=== PATIENT | female | born 1965 | race African-American/Black ===

== ENCOUNTER → 2017-05-27 | Outpatient (REF) | payer OTHER, MEDICAID ==
[~2017-05-27] MED LIST: CLA OR; CLAR10CA3 PO; CLAR1TAB2 PO; CYMB60CA3 PO; FIBEPOW PO; HAIR1TAB5 PO; OXYC1TAB23 PO; PRIL1CAP PO; PRIL20CA9 PO; eczema cream TOP; meclizine OR; xanax OR
== END ==
LOC: M SFHCWAGY 11:24
PROVIDERS: ATTEND Nurse Practitioner Women's Health
DX: Z11.3 Encounter for screening for infections with a predominantly sexual mode of transmission (principal)

== ENCOUNTER → 2018-01-21 | Outpatient (REF) | payer MEDICAID, OTHER | LOC: M LAB REF 18:56 | DX: N76.0 Acute vaginitis (principal); A60.04 Herpesviral vulvovaginitis ==

== ENCOUNTER 2018-02-01 07:50 | Emergency (ER) | payer OTHER, MEDICAID ==
[2018-02-01] MEDS: ASPIRIN 81 MG CHEW TABLET PO (08:20)
[2018-02-01 08:33] LABS: BASO # 0.1 10^3/uL (0.0-0.2); BASO % 0.8 % (0.0-1.0); EOS # 0.3 10^3/uL (0.0-0.50); EOS % 4.8 % (0.0-3.0); HEMATOCRIT 39.7 % (36.0-47.0); LYMPH # 2.3 10^3/uL (1.5-4.5); LYMPH % 37.3 % (24.0-44.0); MEAN CORPUSCULAR HEMOGLOBIN 29.1 pg (27.0-33.0); MEAN CORPUSCULAR HGB CONC 32.7 g/dl (32.0-36.5); MEAN CORPUSCULAR VOLUME 88.8 fl (80.0-96.0); MONO # 0.5 10^3/uL (0.0-0.8); MONO % 7.4 % (0.0-5.0); NEUTROPHILS # 3.1 10^3/uL (1.8-7.7); NEUTROPHILS % 49.7 % (36.0-66.0); PLATELET COUNT, AUTOMATED 275 10^3/uL (150-450); RED BLOOD COUNT 4.47 10^6/uL (4.00-5.40); RED CELL DISTRIBUTION WIDTH 13.7 % (11.5-14.5); WHITE BLOOD COUNT 6.2 10^3/uL (4.0-10.0)
[2018-02-01 08:57] LABS: ALBUMIN 3.4 GM/DL (3.2-5.2); ALBUMIN/GLOBULIN RATIO 0.85 (1.00-1.93); ALKALINE PHOSPHATASE 105 U/L (45-117); ALT/SGPT 20 U/L (12-78); ANION GAP 7 MEQ/L (8-16); AST/SGOT 21 U/L (7-37); BILIRUBIN,DIRECT < 0.1 MG/DL (0.0-0.2); BILIRUBIN,TOTAL 0.3 MG/DL (0.2-1.0); BLOOD UREA NITROGEN 9 MG/DL (7-18); CALCIUM LEVEL 8.4 MG/DL (8.5-10.1); CARBON DIOXIDE LEVEL 26 MEQ/L (21-32); CHLORIDE LEVEL 108 MEQ/L (98-107); CK-MB VALUE MASS < 1.0 NG/ML (<3.6); CPK CREATINE PHOSPHOKINASE 99 U/L (26-192); CREATININE FOR GFR 0.79 MG/DL (0.55-1.30); GLOMERULAR FILTRATION RATE > 60.0 (>51); GLUCOSE, FASTING 98 MG/DL (70-100); LIPASE 104 U/L (73-393); MB/CK RELATIVE INDEX 1.01 (< OR =4); NT-PRO BNP 20 PG/ML (<125); POTASSIUM SERUM 3.9 MEQ/L (3.5-5.1); SODIUM LEVEL 141 MEQ/L (136-145); TOTAL PROTEIN 7.4 GM/DL (6.4-8.2); TROPONIN I < 0.02 NG/ML (< 0.10)
[2018-02-01] MEDS: KETOROLAC 30 MG/ML VIAL (J1885) IV (09:15)
[2018-02-01] MEDS: GI COCKTAIL 50ML BTL(HYOSCYAMINE/MAALOX/LIDOCAINE VISCOUS)(1:3:1) PO (09:15)
[2018-02-01 11:14] LABS: CPK CREATINE PHOSPHOKINASE 91 U/L (26-192); TROPONIN I < 0.02 NG/ML (< 0.10)
[2018-02-01 11:15] LABS: CK-MB VALUE MASS < 1.0 NG/ML (<3.6); MB/CK RELATIVE INDEX 1.09 (< OR =4)
== END 2018-02-01 12:30 | disposition home or self-care (01) ==
LOC: M ED 07:50
DX: R07.9 Chest pain, unspecified (principal); I31.9 Disease of pericardium, unspecified; F41.9 Anxiety disorder, unspecified; F32.9 Major depressive disorder, single episode, unspecified; Z79.899 Other long term (current) drug therapy
CPT/HCPCS: J1885

== ENCOUNTER 2018-08-05 19:25 | Emergency (ER) | payer OTHER, MEDICAID ==
[2018-08-05] MEDS: IBUPROFEN 600 MG TAB PO (21:03)
[2018-08-05] MEDS: ALBUTEROL SULFATE 2.5 MG/0.5 ML INH NEB SOLN NEB (21:04)
[2018-08-05] MEDS: BENZONATATE 100 MG CAP PO (21:04)
[2018-08-05] MEDS: PSEUDOEPHEDRINE 30 MG TAB PO (21:08)
[2018-08-05 21:37] LABS: INFLUENZA A AMPLIFICATION NEGATIVE (NEGATIVE); INFLUENZA B AMPLIFICATION NEGATIVE (NEGATIVE)
[2018-08-05 22:12] LABS: BASO # 0.1 10^3/uL (0.0-0.2); BASO % 0.5 % (0.0-1.0); EOS # 0.1 10^3/uL (0.0-0.50); EOS % 1.1 % (0.0-3.0); HEMATOCRIT 40.7 % (36.0-47.0); HEMOGLOBIN 13.5 g/dl (12.0-15.5); IMMATURE GRANULOCYTE % 0.4 % (0-3.0); LYMPH # 2.1 10^3/uL (1.5-4.5); LYMPH % 19.4 % (24.0-44.0); MEAN CORPUSCULAR HEMOGLOBIN 30.5 pg (27.0-33.0); MEAN CORPUSCULAR HGB CONC 33.2 g/dl (32.0-36.5); MEAN CORPUSCULAR VOLUME 92.1 fl (80.0-96.0); MONO % 9.5 % (0.0-5.0); NEUTROPHILS # 7.6 10^3/uL (1.8-7.7); NEUTROPHILS % 69.1 % (36.0-66.0); PLATELET COUNT, AUTOMATED 229 10^3/uL (150-450); RED BLOOD COUNT 4.42 10^6/uL (4.00-5.40)
[2018-08-05 22:38] LABS: ALBUMIN 3.9 GM/DL (3.2-5.2); ALBUMIN/GLOBULIN RATIO 1.15 (1.00-1.93); ALKALINE PHOSPHATASE 87 U/L (45-117); ALT/SGPT 22 U/L (12-78); ANION GAP 6 MEQ/L (8-16); AST/SGOT 22 U/L (7-37); BILIRUBIN,TOTAL 0.4 MG/DL (0.2-1.0); BLOOD UREA NITROGEN 14 MG/DL (7-18); CALCIUM LEVEL 8.7 MG/DL (8.5-10.1); CARBON DIOXIDE LEVEL 28 MEQ/L (21-32); CHLORIDE LEVEL 104 MEQ/L (98-107); CK-MB VALUE MASS < 1.0 NG/ML (<3.6); CPK CREATINE PHOSPHOKINASE 121 U/L (26-192); CREATININE FOR GFR 0.87 MG/DL (0.55-1.30); GLOMERULAR FILTRATION RATE > 60.0 (>51); GLUCOSE, FASTING 111 MG/DL (70-100); LIPASE 106 U/L (73-393); MB/CK RELATIVE INDEX 0.83 (< OR =4); POTASSIUM SERUM 4.1 MEQ/L (3.5-5.1); SODIUM LEVEL 138 MEQ/L (136-145); TOTAL PROTEIN 7.3 GM/DL (6.4-8.2); TROPONIN I < 0.02 NG/ML (< 0.10)
== END 2018-08-05 23:02 | disposition home or self-care (01) ==
LOC: M ED 19:25
DX: J06.9 Acute upper respiratory infection, unspecified (principal); Z87.891 Personal history of nicotine dependence; Z82.49 Family history of ischemic heart disease and other diseases of the circulatory system; Z79.899 Other long term (current) drug therapy
CPT/HCPCS: 71046

== ENCOUNTER 2018-08-07 21:11 | Emergency (ER) | payer OTHER, MEDICAID ==
[2018-08-07] MEDS: NS 1,000 ML IV ×2 (21:53→22:00)
[2018-08-07 22:02] LABS: BASO % 0.3 % (0.0-1.0); HEMATOCRIT 40.4 % (36.0-47.0); HEMOGLOBIN 13.9 g/dl (12.0-15.5); IMMATURE GRANULOCYTE % 0.1 % (0-3.0); LYMPH # 0.9 10^3/uL (1.5-4.5); LYMPH % 8.5 % (24.0-44.0); MEAN CORPUSCULAR HEMOGLOBIN 30.5 pg (27.0-33.0); MEAN CORPUSCULAR HGB CONC 34.4 g/dl (32.0-36.5); MEAN CORPUSCULAR VOLUME 88.6 fl (80.0-96.0); MONO # 0.5 10^3/uL (0.0-0.8); MONO % 5.2 % (0.0-5.0); NEUTROPHILS # 8.9 10^3/uL (1.8-7.7); NEUTROPHILS % 85.9 % (36.0-66.0); PLATELET COUNT, AUTOMATED 223 10^3/uL (150-450); RED BLOOD COUNT 4.56 10^6/uL (4.00-5.40); RED CELL DISTRIBUTION WIDTH 13.7 % (11.5-14.5); WHITE BLOOD COUNT 10.3 10^3/uL (4.0-10.0)
[2018-08-07 22:11] LABS: ALBUMIN 3.4 GM/DL (3.2-5.2); ALBUMIN/GLOBULIN RATIO 0.81 (1.00-1.93); ALKALINE PHOSPHATASE 89 U/L (45-117); ALT/SGPT 21 U/L (12-78); ANION GAP 8 MEQ/L (8-16); AST/SGOT 23 U/L (7-37); BILIRUBIN,DIRECT 0.1 MG/DL (0.0-0.2); BILIRUBIN,TOTAL 0.4 MG/DL (0.2-1.0); BLOOD UREA NITROGEN 9 MG/DL (7-18); CALCIUM LEVEL 8.4 MG/DL (8.5-10.1); CARBON DIOXIDE LEVEL 25 MEQ/L (21-32); CHLORIDE LEVEL 103 MEQ/L (98-107); CREATININE FOR GFR 0.98 MG/DL (0.55-1.30); GLOMERULAR FILTRATION RATE > 60.0 (>51); GLUCOSE, FASTING 140 MG/DL (70-100); POTASSIUM SERUM 3.4 MEQ/L (3.5-5.1); SODIUM LEVEL 136 MEQ/L (136-145); TOTAL PROTEIN 7.6 GM/DL (6.4-8.2)
[2018-08-07 22:12] LABS: LACTIC ACID SEPSIS PROTOCOL 0.9 MMOL/L (0.4-2.0)
[2018-08-07] MEDS: IBUPROFEN 600 MG TAB PO (22:30)
[2018-08-07] MEDS: ACETAMINOPHEN 650MG ER TAB (TYLENOL ARTHRITIS) PO (23:00)
[2018-08-07 23:10] LABS: APPEARANCE, URINE HAZY (CLEAR); BACTERIA, URINE AUTO 3+ (NEGATIVE); BILIRUBIN, URINE AUTO NEGATIVE (NEGATIVE); BLOOD, URINE BLOOD NEGATIVE (NEGATIVE); COLOR, URINE YELLOW (YELLOW); GLUCOSE, URINE (UA) AUTO NEGATIVE (NEGATIVE); KETONE, URINE AUTO TRACE mg/dL (NEGATIVE); LEUKOCYTE ESTERASE, URINE AUTO 1+ (NEGATIVE); MUCUS, URINE SMALL (NEGATIVE); NITRITE, URINE AUTO NEGATIVE (NEGATIVE); PROTEIN, URINE AUTO NEGATIVE (NEGATIVE); RBC, URINE AUTO 4 /HPF (0-3); SQUAMOUS EPITHELIAL CELL UR AU 5 /HPF (0-6); UROBILINOGEN, URINE AUTO 0.2 mg/dL (0.0-2.0); WBC, URINE AUTO 5 /HPF (0-3)
[2018-08-07] MEDS: ACETAMINOPHEN TAB 650MG DOSE (2X325MG) PO (23:15)
[2018-08-08] MEDS: AZITHROMYCIN 250 MG TAB PO (00:50)
[2018-08-08] MEDS: cefTRIAXone SOD 1 GM in D5W MINI-BAG PLUS 50 ML IV (00:50)
[2018-08-08] MEDS: OXYCODONE/APAP 5MG/325MG(BULK FOR ED) 1 TABLET PO (00:50)
[2018-08-08 01:02] LABS: INFLUENZA A AMPLIFICATION NEGATIVE (NEGATIVE); INFLUENZA B AMPLIFICATION NEGATIVE (NEGATIVE)
== END 2018-08-08 01:18 | disposition home or self-care (01) ==
LOC: M ED 08-08 01:18
DX: J18.9 Pneumonia, unspecified organism (principal); R00.0 Tachycardia, unspecified; R94.31 Abnormal electrocardiogram [ECG] [EKG]; K21.9 Gastro-esophageal reflux disease without esophagitis; F41.9 Anxiety disorder, unspecified; F32.9 Major depressive disorder, single episode, unspecified; L30.9 Dermatitis, unspecified; Z87.891 Personal history of nicotine dependence; Z79.899 Other long term (current) drug therapy
CPT/HCPCS: J0696

== ENCOUNTER 2018-08-23 16:17 | Inpatient (IN) | payer MEDICAID, OTHER ==
[~2018-08-23] VITALS: Ht 157.5 cm; Wt 80.5 kg
[~2018-08-23 16:17] MED LIST changes: +ACET-683 PO; +ACET1TAB55 PO; +ALEV220T26 PO; +ALPR0.25 PO; +AMOX500C PO; +AZIT500T2 PO; +BRIN10TA4; +CALC1TAB74 PO; +CALC1TAB9 PO; +CEFD300CAP PO; +CLON0.5T8 PO; +CLON1TAB8 PO; +CYMB1CAP5 PO; +DESO0.254 TOP; +FIBE625T PO; +FIBE625T22 PO; +HAIR1CHW2 PO; +IBUP-1114 PO; +KLON1TAB PO; +MAGN250T11 PO; +MAGN400T5 PO; +METR1TAB66; +MOTR200T PO; +NYST10CR TOP; +OMEP20CA3 PO; +OXYC-517 PO; +PERP4TA PO; +PROAAER10 INH; +PSEU1TAB3 PO; +REME15TA PO; +TERC0.4C; +TESS100C PO; +TRIA0.5O TOP; +VITA500T3 PO; +VITA500T53 PO; +XANA0.25 PO
[2018-08-23 16:39] LABS: HEMATOCRIT 42.9 % (36.0-47.0); HEMOGLOBIN 14.3 g/dl (12.0-15.5); MEAN CORPUSCULAR HEMOGLOBIN 30.2 pg (27.0-33.0); MEAN CORPUSCULAR HGB CONC 33.3 g/dl (32.0-36.5); MEAN CORPUSCULAR VOLUME 90.7 fl (80.0-96.0); PLATELET COUNT, AUTOMATED 300 10^3/uL (150-450); RED BLOOD COUNT 4.73 10^6/uL (4.00-5.40); WHITE BLOOD COUNT 5.8 10^3/uL (4.0-10.0)
[2018-08-23 17:11] LABS: AMPHETAMINES LEVEL URINE NEGATIVE (NEGATIVE); BARBITURATES URINE NEGATIVE (NEGATIVE); BENZODIAZEPINES URINE POSITIVE (NEGATIVE); CANNABINOIDS URINE POSITIVE (NEGATIVE); COCAINE METABOLITE URINE NEGATIVE (NEGATIVE); METHADONE URINE NEGATIVE (NEGATIVE); OPIATES URINE NEGATIVE (NEGATIVE); PHENCYCLIDINE URINE NEGATIVE (NEGATIVE)
[2018-08-23 17:21] LABS: ACETAMINOPHEN LEVEL 3.6 UG/ML (10.0-30.0); ALBUMIN 3.9 GM/DL (3.2-5.2); ALT/SGPT 22 U/L (12-78); BILIRUBIN,DIRECT 0.1 MG/DL (0.0-0.2); BILIRUBIN,TOTAL 0.3 MG/DL (0.2-1.0); BLOOD UREA NITROGEN 14 MG/DL (7-18); CALCIUM LEVEL 8.7 MG/DL (8.5-10.1); CARBON DIOXIDE LEVEL 25 MEQ/L (21-32); CHLORIDE LEVEL 108 MEQ/L (98-107); CREATININE FOR GFR 0.83 MG/DL (0.55-1.30); ETHYL ALCOHOL (ETHANOL) < 0.003 % (0.000-0.010); GLOMERULAR FILTRATION RATE > 60.0 (>51); GLUCOSE, FASTING 98 MG/DL (70-100); POTASSIUM SERUM 4.4 MEQ/L (3.5-5.1); SALICYLATE LEVEL < 1.7 MG/DL (5.0-30.0); SODIUM LEVEL 142 MEQ/L (136-145); TOTAL PROTEIN 7.7 GM/DL (6.4-8.2)
[2018-08-23] MEDS ORDERED: PROAAER10 INH (18:04)
[2018-08-23] MEDS ORDERED: CYMB60CA3 PO (18:05)
[2018-08-23] MEDS ORDERED: TESS100C PO (18:05)
[2018-08-23] MEDS ORDERED: BRIN10TA4 PO (18:08)
[2018-08-23] MEDS ORDERED: ACETAMINOPHEN TAB 650MG DOSE (2X325MG) PO PRN (19:00)
[2018-08-23] MEDS ORDERED: MAALOX 30 ML SUSP *UDC PO PRN (19:00)
[2018-08-23] MEDS ORDERED: traZODone 50 MG TAB PO PRN (19:00)
[2018-08-23] MEDS ORDERED: MOM 30ML SUSPENSION UDC PO PRN (19:00)
[2018-08-23 22:19] VITALS: BP 140/80
[2018-08-23] MEDS ORDERED: clonazePAM 1 MG TAB PO PRN (23:15)
[2018-08-23] MEDS ORDERED: ALBUTEROL 90 MCG/ACT 8GM HFA INHALER INH PRN (23:15)
[2018-08-23] MEDS ORDERED: BENZONATATE 100 MG CAP PO PRN (23:15)
[2018-08-24 06:43] VITALS: BP 127/66
[2018-08-24] MEDS: CYANOCOBALAMIN 500 MCG TAB PO SCH (08:52)
[2018-08-24] MEDS: MAGNESIUM OXIDE 400 MG TAB (MAG-OX) PO SCH (08:52)
[2018-08-24] MEDS: LORATADINE 10 MG TAB PO SCH (08:52)
[2018-08-24] MEDS: FIBER-CON 625 MG TAB PO SCH ×2 (08:52→20:56)
[2018-08-24] MEDS: OMEPRAZOLE 20 MG CAP PO SCH (08:52)
[2018-08-24] MEDS ORDERED: DULoxetine 30 MG CAP (CYMBALTA) PO SCH (09:00)
[2018-08-24] MEDS: VENLAFAXINE **XR** 75MG CAPSULE PO SCH (11:35)
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
[2018-08-24 18:00] VITALS: BP 137/91
[2018-08-24] MEDS: traZODone 50 MG TAB PO PRN (20:56)
[2018-08-25 07:00] VITALS: BP 107/53
[2018-08-25] MEDS: FIBER-CON 625 MG TAB PO SCH ×2 (09:28→21:51)
[2018-08-25] MEDS: CYANOCOBALAMIN 500 MCG TAB PO SCH (09:29)
[2018-08-25] MEDS: OMEPRAZOLE 20 MG CAP PO SCH (09:30)
[2018-08-25] MEDS: VENLAFAXINE **XR** 75MG CAPSULE PO SCH (09:30)
[2018-08-25] MEDS: MAGNESIUM OXIDE 400 MG TAB (MAG-OX) PO SCH (09:30)
[2018-08-25] MEDS: LORATADINE 10 MG TAB PO SCH (09:30)
--- NOTE | 2018-08-25 10:42 | REP ---
Chest x-ray: Two views. History: Follow-up pneumonia. Comparison chest x-ray August 07, 2018. Findings: The infiltrate noted previously in the right upper lobe has resolved. No infiltrate is seen. Lung alxeandra are clear. Pleural angles are sharp. Heart is not enlarged. The aorta is somewhat tortuous and there are mild degenerative changes in the thoracic spine as before. Impression: No active disease. Previously noted right upper lobe infiltrate has resolved. Electronically Signed by Ricki Harvey MD 08/25/2018 10:34 A
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
--- NOTE | 2018-08-25 15:35 | HPE ---
DATE OF ADMISSION: 08/24/2017 HISTORY OF PRESENT ILLNESS: Please refer to the psychiatric history and evaluation for further details on this admission. This examination and history is intended for medical issues which may need treatment, followup or consult on this 53-year-old female. PRIMARY CARE PROVIDER: FRANSICO Berman SOCIAL HISTORY: She is single. She has two children. She works in daycare. She does not smoke cigarettes. She drinks once a month if that. Illicit drug use: Cocaine in her teens, acid approximately 30 years ago. She occasionally smokes marijuana. FAMILY HISTORY: Mother from chronic obstructive pulmonary disease (COPD). Father unknown. LABORATORY STUDIES: CBC was normal. Sodium 142, potassium 4.4, chloride 105, CO2 25, anion gap 9, BUN 14, creatinine 0.83. Urine for toxicology positive for benzodiazepines, positive for cannabinoids. PAST MEDICAL HISTORY: 1. Anxiety. 2. Depression. 3. Eczema. 4. Gastroesophageal reflux disease (GERD). 5. Allergic rhinitis. PAST SURGICAL HISTORY: 1. Right carpal tunnel release. 2. Hysterectomy. 3. Left trigger thumb release. 4. De Quervain's tendonitis. REVIEW OF SYSTEMS: She had a cough and was treated since 08/07/2018 for pneumonia. She has finished her antibiotics. She takes loratadine for her allergic rhinitis. She says her cough is almost gone. We will get a followup chest x-ray. Otherwise, review of systems was negative. HOME MEDICATIONS: - alprazolam 0.25 mg daily as needed for anxiety or agitation - FiberCon 1250 mg by mouth twice a day - magnesium 250 mg by mouth daily - perphenazine 4 mg by mouth twice a day - Trintellix 10 mg by mouth daily - albuterol two puffs by mouth every 4-6 hours as needed for shortness of breath or wheeze - Tessalon Perles 100 by mouth three times a day as needed for cough - Klonopin 1 mg by mouth twice a day as needed for anxiety - vitamin B12 500 mcg by mouth daily - Cymbalta 60 mg by mouth daily - loratadine 10 mg by mouth daily - omeprazole 20 mg by mouth daily PHYSICAL EXAMINATION: A 53-year-old cooperative female in no acute distress. Height 62 inches. Weight 80.5 kg. Body mass index (BMI) 32.5. Blood pressure 127/66, pulse 76, respirations 16, temperature 97.7, oxygen saturation 97% on room air. The patient is alert and oriented times three. Pupils are equal and react to light. Extraocular muscles intact. Cornea and sclerae clear. Conjunctiva is normal. No facial asymmetry. Pharynx, tongue and gums pink and moist. Tongue is midline. Neck is supple without lymphadenopathy. No thyromegaly. No goiter. Carotids are 2+ without bruit. Chest is clear to auscultation without wheeze or retraction. Heart is regular. Abdomen is benign. Bowel sounds positive. Genitourinary ()/rectal not done. Extremities show equal strength, full range of motion. No cyanosis, clubbing or edema. Peripheral pulses are equal and palpable bilaterally. Skin is warm and dry. IMPRESSION AND PLAN: 1. Psychiatric plan per psychiatry. 2. Followup chest x-ray, status post pneumonia treatment. 3. Baseline EKG was done 11/24/2017 which showed normal sinus rhythm. 4. Continue loratadine for history of allergic rhinitis, omeprazole for gastroesophageal reflux disease (GERD). No other acute medical issues.
[2018-08-25 18:00] VITALS: BP 141/83
[2018-08-25] MEDS: traZODone 50 MG TAB PO PRN (21:51)
[2018-08-26 06:22] VITALS: BP 93/59
[2018-08-26] MEDS: CYANOCOBALAMIN 500 MCG TAB PO SCH (08:43)
[2018-08-26] MEDS: FIBER-CON 625 MG TAB PO SCH ×2 (08:43→20:44)
[2018-08-26] MEDS: OMEPRAZOLE 20 MG CAP PO SCH (08:44)
[2018-08-26] MEDS: VENLAFAXINE **XR** 75MG CAPSULE PO SCH (08:44)
[2018-08-26] MEDS: LORATADINE 10 MG TAB PO SCH (08:44)
[2018-08-26] MEDS: MAGNESIUM OXIDE 400 MG TAB (MAG-OX) PO SCH (08:44)
[2018-08-26] MEDS ORDERED: INFLUENZA QUADRIVALENT PF VACCINE 0.5ML SYRINGE (90686) IM ONE (09:00)
[2018-08-26 18:00] VITALS: BP 127/86
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
[2018-08-26] MEDS: traZODone 50 MG TAB PO PRN (20:45)
[2018-08-27 06:18] VITALS: BP 108/63
[2018-08-27] MEDS: MAGNESIUM OXIDE 400 MG TAB (MAG-OX) PO SCH (08:28)
[2018-08-27] MEDS: VENLAFAXINE **XR** 75MG CAPSULE PO SCH (08:28)
[2018-08-27] MEDS: OMEPRAZOLE 20 MG CAP PO SCH (08:28)
[2018-08-27] MEDS: CYANOCOBALAMIN 500 MCG TAB PO SCH (08:28)
[2018-08-27] MEDS: LORATADINE 10 MG TAB PO SCH (08:28)
[2018-08-27] MEDS: FIBER-CON 625 MG TAB PO SCH (08:28)
[2018-08-27] MEDS ORDERED: TRAZO50TA PO (10:51)
[2018-08-27] MEDS ORDERED: KLON1TAB PO (10:51)
[2018-08-27] MEDS ORDERED: FIBE625T PO (10:51)
[2018-08-27] MEDS ORDERED: CLAR1TAB2 PO (10:51)
[2018-08-27] MEDS ORDERED: TESS100C PO (10:51)
[2018-08-27] MEDS ORDERED: PROAAER10 INH (10:51)
[2018-08-27] MEDS ORDERED: OMEP20CA3 PO (10:51)
[2018-08-27] MEDS ORDERED: VENL75CA47 PO (10:51)
[2018-08-27] MEDS ORDERED: MAGN250T11 PO (10:51)
[2018-08-27] MEDS ORDERED: VITA500T3 PO (10:51)
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
== END 2018-08-27 11:30 | disposition home or self-care (01) | DRG 751 ==
LOC: M ED 16:17 → M ED INP 18:56 → M PSY 21:23
PROVIDERS: ADMIT Psychiatry & Neurology Psychiatry; ATTEND Psychiatry & Neurology Psychiatry
DX: F33.3 Major depressive disorder, recurrent, severe with psychotic symptoms (principal); R45.851 Suicidal ideations; F41.9 Anxiety disorder, unspecified; F43.10 Post-traumatic stress disorder, unspecified; Z79.899 Other long term (current) drug therapy; K21.9 Gastro-esophageal reflux disease without esophagitis; J30.9 Allergic rhinitis, unspecified; L30.9 Dermatitis, unspecified

== ENCOUNTER → 2018-12-24 | Outpatient (REF) | payer OTHER ==
[~2018-12-24] MED LIST changes: +BRIN10TA4 PO; +METR-265; -METR1TAB66; -TERC0.4C; +TERC0.4C2; +TRAZO50TA PO; +VENL75CA47 PO; +VITA500T17 PO; -VITA500T53 PO
[2018-12-24 15:35] LABS: HEMATOCRIT 44.4 % (36.0-47.0); HEMOGLOBIN 14.3 g/dl (12.0-15.5); MEAN CORPUSCULAR HEMOGLOBIN 30.1 pg (27.0-33.0); MEAN CORPUSCULAR HGB CONC 32.2 g/dl (32.0-36.5); MEAN CORPUSCULAR VOLUME 93.5 fl (80.0-96.0); PLATELET COUNT, AUTOMATED 310 10^3/uL (150-450); RED BLOOD COUNT 4.75 10^6/uL (4.00-5.40)
[2018-12-24 15:49] LABS: ALBUMIN 3.8 GM/DL (3.2-5.2); ALT/SGPT 30 U/L (12-78); BILIRUBIN,TOTAL 0.3 MG/DL (0.2-1.0); BLOOD UREA NITROGEN 8 MG/DL (7-18); CALCIUM LEVEL 8.4 MG/DL (8.5-10.1); CARBON DIOXIDE LEVEL 29 MEQ/L (21-32); CHLORIDE LEVEL 109 MEQ/L (98-107); CHOLESTEROL LEVEL 227 MG/DL (<200); CHOLESTEROL RISK RATIO 4.365 (<5); CREATININE FOR GFR 0.76 MG/DL (0.55-1.30); FREE T4 0.79 NG/DL (0.76-1.46); GLOMERULAR FILTRATION RATE > 60.0 (>51); GLUCOSE, FASTING 75 MG/DL (70-100); HDL CHOLESTEROL 52 MG/DL (>40); LDL CHOLESTEROL 129 MG/DL (<100); NON-HDL-C 175 MG/DL; POTASSIUM SERUM 4.7 MEQ/L (3.5-5.1); SODIUM LEVEL 141 MEQ/L (136-145); TRIGLYCERIDES LEVEL 228 MG/DL (<150)
== END ==
LOC: M SFHCADAM 11:29
PROVIDERS: ATTEND Physician Assistant
DX: F41.9 Anxiety disorder, unspecified (principal); Z13.220 Encounter for screening for lipoid disorders; L72.9 Follicular cyst of the skin and subcutaneous tissue, unspecified; K21.9 Gastro-esophageal reflux disease without esophagitis; R14.0 Abdominal distension (gaseous)

== ENCOUNTER 2019-08-08 09:23 | Emergency (ER) | payer OTHER, MEDICAID ==
[~2019-08-08] VITALS: Ht 160 cm; Wt 85.9 kg
[~2019-08-08 09:23] MED LIST changes: -AZIT500T2 PO; +AZIT500T5 PO; +CLON0.5T2 PO; -CLON0.5T8 PO; +CYAN500T8 PO; +OMEP-172 PO; -OMEP20CA3 PO; +TRAZ1TAB10 PO; -TRAZO50TA PO; -VITA500T3 PO
[2019-08-08 10:45] LABS: BASO % 0.6 % (0.0-1.0); EOS # 0.1 10^3/uL (0.0-0.5); EOS % 2.1 % (0.0-3.0); HEMATOCRIT 43.4 % (36.0-47.0); HEMOGLOBIN 13.8 g/dl (12.0-15.5); LYMPH # 2.2 10^3/uL (1.5-5.0); LYMPH % 32.6 % (24.0-44.0); MEAN CORPUSCULAR HEMOGLOBIN 28.9 pg (27.0-33.0); MEAN CORPUSCULAR HGB CONC 31.8 g/dl (32.0-36.5); MONO # 0.4 10^3/uL (0.0-0.8); MONO % 5.8 % (0.0-5.0); NEUTROPHILS # 3.9 10^3/uL (1.5-8.5); NEUTROPHILS % 58.6 % (36.0-66.0); PLATELET COUNT, AUTOMATED 296 10^3/uL (150-450); RED BLOOD COUNT 4.77 10^6/uL (4.00-5.40); WHITE BLOOD COUNT 6.7 10^3/uL (4.0-10.0)
[2019-08-08 10:57] LABS: INR 0.97; PROTHROMBIN TIME 12.6 SECONDS (11.8-14.0)
--- NOTE | 2019-08-08 10:57 | REP ---
Chest x-ray: Two views. History: Hypertension . Comparison study: August 25, 2018 . Findings: The lungs are well inflated and free of infiltrate. The pleural angles are sharp. The heart size is normal. Pulmonary vasculature is not increased. No significant bony abnormality is seen. Monitoring electrodes are seen. The thoracic aorta slightly tortuous as before. Impression: No active disease. Electronically Signed by Ricki Harvey MD 08/08/2019 10:49 A
[2019-08-08 10:58] LABS: PARTIAL THROMBOPLASTIN TIME 29.5 SECONDS (25.0-38.4)
[2019-08-08 11:23] LABS: BLOOD UREA NITROGEN 9 MG/DL (7-18); CALCIUM LEVEL 8.7 MG/DL (8.5-10.1); CARBON DIOXIDE LEVEL 27 MEQ/L (21-32); CHLORIDE LEVEL 108 MEQ/L (98-107); CK-MB VALUE MASS 1.5 NG/ML (<3.6); CPK CREATINE PHOSPHOKINASE 134 U/L (26-192); CREATININE FOR GFR 0.84 MG/DL (0.55-1.30); FREE T4 0.87 NG/DL (0.76-1.46); GLOMERULAR FILTRATION RATE > 60.0 (>51); GLUCOSE, FASTING 84 MG/DL (70-100); MB/CK RELATIVE INDEX 1.12 (< OR =4); SODIUM LEVEL 141 MEQ/L (136-145); TROPONIN I < 0.02 NG/ML (< 0.10)
[2019-08-08 12:49] VITALS: BP 134/76
--- NOTE | 2019-08-09 21:57 | ECGEPIP ---
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
== END 2019-08-08 12:56 | disposition home or self-care (01) ==
LOC: M ED 09:23
DX: I10 Essential (primary) hypertension (principal); R00.1 Bradycardia, unspecified; F41.9 Anxiety disorder, unspecified; F32.9 Major depressive disorder, single episode, unspecified; Z79.899 Other long term (current) drug therapy

== ENCOUNTER → 2020-01-31 | Outpatient (CLI) | payer OTHER ==
[~2020-01-31] MED LIST changes: +DEXT350P PO; -FIBEPOW PO; -OMEP-172 PO; +OMEP1CAP73 PO
--- NOTE | 2020-02-02 14:49 | REP ---
Clinical: Enlarged thyroid gland by physical examination. Technique: Real time wheat scale and color evaluation using linear high frequency and curved array transducers. Findings: The thyroid gland is relatively normal in contour, size, parenchymal echotexture and overall appearance. Right lobe measures 4.5 x 1.7 x 1.7 cm. Left lobe measures 4.8 x 1.7 x 1.3 cm. Isthmus measures 4.2 mm in width. No discrete cyst, nodule or mass lesion appreciated. Impression: Normal thyroid ultrasound.
== END ==
LOC: M PLAIMG 14:28
PROVIDERS: ATTEND Family Medicine
DX: E04.9 Nontoxic goiter, unspecified (principal)

== ENCOUNTER → 2020-02-13 | Outpatient (REF) | payer OTHER ==
[2020-02-13 13:46] LABS: BASO # 0.1 10^3/uL (0.0-0.2); BASO % 0.8 % (0.0-1.0); EOS # 0.3 10^3/uL (0.0-0.5); EOS % 3.8 % (0.0-3.0); HEMATOCRIT 44.2 % (36.0-47.0); HEMOGLOBIN 14.4 g/dl (12.0-15.5); LYMPH # 2.8 10^3/uL (1.5-5.0); LYMPH % 41.8 % (24.0-44.0); MEAN CORPUSCULAR HEMOGLOBIN 28.9 pg (27.0-33.0); MEAN CORPUSCULAR HGB CONC 32.6 g/dl (32.0-36.5); MEAN CORPUSCULAR VOLUME 88.8 fl (80.0-96.0); MONO # 0.4 10^3/uL (0.0-0.8); MONO % 6.6 % (0.0-5.0); NEUTROPHILS # 3.1 10^3/uL (1.5-8.5); NEUTROPHILS % 46.8 % (36.0-66.0); PLATELET COUNT, AUTOMATED 296 10^3/uL (150-450); RED BLOOD COUNT 4.98 10^6/uL (4.00-5.40); WHITE BLOOD COUNT 6.6 10^3/uL (4.0-10.0)
[2020-02-13 14:25] LABS: ALBUMIN 3.7 GM/DL (3.2-5.2); ALT/SGPT 15 U/L (12-78); BILIRUBIN,TOTAL 0.3 MG/DL (0.2-1.0); BLOOD UREA NITROGEN 12 MG/DL (7-18); CALCIUM LEVEL 8.8 MG/DL (8.5-10.1); CARBON DIOXIDE LEVEL 28 MEQ/L (21-32); CHLORIDE LEVEL 107 MEQ/L (98-107); CHOLESTEROL LEVEL 206 MG/DL (<200); CHOLESTEROL RISK RATIO 3.551 (<5); CREATININE FOR GFR 0.85 MG/DL (0.55-1.30); FREE T4 0.94 NG/DL (0.76-1.46); GLOMERULAR FILTRATION RATE > 60.0 (>51); GLUCOSE, FASTING 93 MG/DL (70-100); HDL CHOLESTEROL 58 MG/DL (>40); LDL CHOLESTEROL 120 MG/DL (<100); NON-HDL-C 148 MG/DL; POTASSIUM SERUM 4.6 MEQ/L (3.5-5.1); SODIUM LEVEL 138 MEQ/L (136-145); TOTAL PROTEIN 7.7 GM/DL (6.4-8.2); TRIGLYCERIDES LEVEL 138 MG/DL (<150)
== END ==
LOC: M SFHCADAM 08:49
PROVIDERS: ATTEND Family Medicine
DX: Z00.00 Encounter for general adult medical examination without abnormal findings (principal); E04.9 Nontoxic goiter, unspecified

== ENCOUNTER 2020-08-18 15:45 | Inpatient (IN) | payer MEDICAID, OTHER ==
[~2020-08-18] VITALS: Ht 165.1 cm; Wt 97.6 kg
[~2020-08-18 15:45] MED LIST changes: +CYAN500T14 PO; -CYAN500T8 PO; +MIRT-62 PO; -REME15TA PO
[2020-08-18] MEDS ORDERED: ESTR1TAB PO (16:10)
[2020-08-18] MEDS ORDERED: KLON1TAB PO (16:10)
[2020-08-18] MEDS ORDERED: BRIN1TAB3 PO (16:10)
[2020-08-18] MEDS ORDERED: PRIS50TA PO (16:10)
[2020-08-18 16:15] LABS: BASO % 0.1 % (0.0-1.0); HEMATOCRIT 38.2 % (36.0-47.0); HEMOGLOBIN 12.4 g/dl (12.0-15.5); LYMPH % 6.6 % (24.0-44.0); MEAN CORPUSCULAR HEMOGLOBIN 28.6 pg (27.0-33.0); MEAN CORPUSCULAR HGB CONC 32.5 g/dl (32.0-36.5); MONO # 0.5 10^3/uL (0.0-0.8); MONO % 3.1 % (0.0-5.0); NEUTROPHILS % 89.9 % (36.0-66.0); PLATELET COUNT, AUTOMATED 278 10^3/uL (150-450); RED BLOOD COUNT 4.34 10^6/uL (4.00-5.40); WHITE BLOOD COUNT 15.5 10^3/uL (4.0-10.0)
[2020-08-18] MEDS ORDERED: NS 1,000 ML IV ONE (16:15)
--- NOTE | 2020-08-18 16:18 | REP ---
INDICATION: Drug Overdose COMPARISON: 08/08/2019 TECHNIQUE: Portable AP view of the chest FINDINGS: The mediastinum and cardiac silhouette are stable and within normal limits for portable technique. The lung alexandra are clear without acute consolidation, effusion, or pneumothorax. Skeletal structures are intact. IMPRESSION: No acute cardiopulmonary process appreciated. <Electronically signed by Tello Santiago > 08/18/20 1230
[2020-08-18 17:03] LABS: ACETAMINOPHEN LEVEL < 2.0 UG/ML (10.0-30.0); ALBUMIN 3.5 GM/DL (3.2-5.2); ALT/SGPT 18 U/L (12-78); BILIRUBIN,DIRECT < 0.1 MG/DL (0.0-0.2); BILIRUBIN,TOTAL 0.5 MG/DL (0.2-1.0); BLOOD UREA NITROGEN 17 MG/DL (7-18); CALCIUM LEVEL 8.6 MG/DL (8.5-10.1); CARBON DIOXIDE LEVEL 25 MEQ/L (21-32); CHLORIDE LEVEL 106 MEQ/L (98-107); CPK CREATINE PHOSPHOKINASE 234 U/L (26-192); CREATININE FOR GFR 1.01 MG/DL (0.55-1.30); ETHYL ALCOHOL (ETHANOL) < 0.003 % (0.000-0.010); GLOMERULAR FILTRATION RATE > 60.0 (>51); GLUCOSE, FASTING 110 MG/DL (70-100); SALICYLATE LEVEL < 1.7 MG/DL (5.0-30.0); SODIUM LEVEL 139 MEQ/L (136-145); THYROID STIMULATING HORMONE 0.762 uIU/ML (0.358-3.740); TOTAL PROTEIN 7.4 GM/DL (6.4-8.2)
[2020-08-18 17:08] LABS: RSV AMPLIFICATION NEGATIVE (NEGATIVE)
[2020-08-18 17:18] LABS: AMPHETAMINES LEVEL URINE NEGATIVE (NEGATIVE); BARBITURATES URINE NEGATIVE (NEGATIVE); BENZODIAZEPINES URINE POSITIVE (NEGATIVE); CANNABINOIDS URINE NEGATIVE (NEGATIVE); COCAINE METABOLITE URINE NEGATIVE (NEGATIVE); METHADONE URINE NEGATIVE (NEGATIVE); OPIATES URINE NEGATIVE (NEGATIVE); PHENCYCLIDINE URINE NEGATIVE (NEGATIVE)
[2020-08-18] MEDS ORDERED: LORA-674 PO (17:19)
[2020-08-18] MEDS ORDERED: OMEP-218 PO (17:19)
[2020-08-18] MEDS ORDERED: DESV100T3 PO (17:19)
[2020-08-18] MEDS: NS 1,000 ML IV SCH (18:01)
--- NOTE | 2020-08-18 18:21 | HPEPDOC ---
[facility] Medical History & Physical Date of Admission Aug 18, 2020 Date of Service: Aug 18, 2020 Attending Physician: CHECO PABLO MD History and Physical CHIEF COMPLAINT: Brought in somonolent after suicide attempt with PO prescription drugs overdose HISTORY OF PRESENT ILLNESS: 55 yo W with a history of major depressive disorder, obesity, GERD and a remote history of pericarditis who was brought in by EMS after a suicide attempt during which she left 3 suicide notes and reportedly took 65 pills in total of various pills including her prescribed klonopin, desvenlafaxine and vortioxetine. Of note, today is her birthday. In the ED she was somnolent but awake on voice but falling asleep during history taking. She is otherwise hemodynamically stable, afebrile and breathing comfortably on room air. Work up was notable for +benzo on tox scree, leukocytosis to 15.5, Hgb 12.4, platelets 278, Na 139, K 4, Cr 1.01, normal VBG without acid/base disturbances, CK 234, normal LFTs, negative respiratory panel and CXR wnl. Poison control was consulted and recommended at least 12 hour observation with repeat basic labs in the morning. She is now being admitted to the ICU for observation with plan to consult psych when she is clinically stable. PAST MEDICAL HISTORY: major depressive disorder, obesity, GERD and a remote history of pericarditis PAST SURGICAL HISTORY: carpal tunnel release, hysterectomy SOCIAL HISTORY: Has two adult children. No alcohol at baseline (except that she reported having taken some during suicide attempt, does not drink at baseline). No smoking. No illicit drugs. FAMILY HISTORY: Mother . Had HTN, CAD, DM, COPD. Father's history is unknown ALLERGIES: Please see below. REVIEW OF SYSTEMS: Limited by patient's mental status with somnolence. HOME MEDICATIONS: Please see below. PHYSICAL EXAMINATION: VITAL SIGNS: HDS, afebrile, stable on room air. See below for details GENERAL APPEARANCE: NAD, somnolent, arousable and speaking appropriately but falling asleep during conversation. HEENT: NCAT, EOMI, MMM CARDIOVASCULAR: RRR, no m/r/g LUNGS: CTAB ABDOMEN: Obese, soft, normoactive sounds, NTND EXTREMITIES: WWP, no LE edema NEUROLOGICAL: speech is clear, moving all extremities. somnolent so cranial nerve exam was incomplete PSYCHIATRIC: AOx3 LABORATORY DATA: See below. Summarized above IMAGING: discussed above MICROBIOLOGY: Please see below. ASSESSMENT: 55 yo W with depression who is being admitted for observation after multidrug intentional overdose. . PLAN: Multidrug overdose: Reportedly took 65 pills altogether of various drugs including her klonopin, desvenlafaxine and vortioxetine. -Poison control was consulted, appreciate recs --> recommended observation for at least 12 hours -AM CBC, LFTs and BMP -Hold all home meds -IVF -1:1 sitter Depression with suicide attempt: -will consult psych once clinically stable GERD: -IV PPI daily for now DVT ppx: lovenox Dispo: ICU for close monitoring for drug overdose. Vital Signs Vital Signs Date Time Temp Pulse Resp B/P (MAP) Pulse Ox O2 Delivery O2 Flow Rate FiO2 08/18/20 17:21 96 96 08/18/20 17:15 138/80 (99) 08/18/20 15:59 Nasal Cannula 2.0 08/18/20 15:53 98.4 16 Laboratory Data Labs 24H Laboratory Tests 2 08/18/20 15:58: Immature Granulocyte % (Auto) 0.3, Neutrophils (%) (Auto) 89.9H, Lymphocytes (%) (Auto) 6.6L, Monocytes (%) (Auto) 3.1, Eosinophils (%) (Auto) 0.0, Basophils (%) (Auto) 0.1, Neutrophils # (Auto) 14.0H, Lymphocytes # (Auto) 1.0L, Monocytes # (Auto) 0.5, Eosinophils # (Auto) 0.0, Basophils # (Auto) 0.0, Nucleated Red Blood Cells % (auto) 0.0, Anion Gap 8, Glomerular Filtration Rate > 60.0, Calcium Level 8.6, Total Bilirubin 0.5, Direct Bilirubin < 0.1, Aspartate Amino Transf (AST/SGOT) 19, Alanine Aminotransferase (ALT/SGPT) 18, Alkaline Phosphatase 95, Total Creatine Kinase 234H, Total Protein 7.4, Albumin 3.5, Albumin/Globulin Ratio 0.9L, Thyroid Stimulating Hormone (TSH) 0.762, Salicylates Level < 1.7L, Acetaminophen Level < 2.0L, Ethyl Alcohol Level < 0.003 08/18/20 16:16: Coronavirus (COVID-19)(PCR) NEGATIVE, Influenza Type A (RT-PCR) NEGATIVE, Influenza Type B (RT-PCR) NEGATIVE, Respiratory Syncytial Virus (PCR) NEGATIVE 08/18/20 16:43: Urine Opiates Screen NEGATIVE, Urine Methadone Screen NEGATIVE, Urine Barbiturates Screen NEGATIVE, Urine Phencyclidine Screen NEGATIVE, Urine Amphetamines Screen NEGATIVE, Urine Benzodiazepines Screen POSITIVEH, Urine Cocaine Metabolite Screen NEGATIVE, Urine Cannabinoids Screen NEGATIVE 08/18/20 17:15: POC pH (Misc Panel) 7.434, POC Base Excess (Misc Panel) -1.0, POC Saturated P ercent O2 (Misc) 96, POC pO2 (Misc Panel) 82.0, POC pCO2 (Misc Panel) 35.3, POC HCO3 (Misc Panel) 23.6, POC Total CO2 (Misc Panel) 25.0 CBC/BMP Laboratory Tests 08/18/20 15:58 Home Medications Scheduled Desvenlafaxine Succinate (Desvenlafaxine Succinate ER) 100 Mg Tab.er.24h, 100 MG PO DAILY Estradiol (Estradiol) 1 Mg Tablet, 1 MG PO DAILY Loratadine (Loratadine) 10 Mg Tablet, 10 MG PO DAILY Omeprazole (Omeprazole) 20 Mg Capsule.dr, 20 MG PO DAILY Vortioxetine Hydrobromide (Trintellix) 20 Mg Tablet, 20 MG PO DAILY Scheduled PRN Clonazepam (Klonopin) 1 Mg Tablet, 1 MG PO TID PRN for ANXIETY/AGITATION Allergies Coded Allergies: No Known Allergies (Unverified , 08/23/18) A-FIB/CHADSVASC A-FIB History Current/History of A-Fib/PAF?: No Current PO Anticoag Therapy: No Age/Risk Factor Scoring CHADSVASC: CHADSVASC Response (Comments) Value Age Risk Factor Age < 65 years old 0 Gender Risk Factor Female 1 Hx of CHF No 0 Hx of HTN No 0 Hx of Stroke/TIA/or VTE No 0 Hx of Diabetes No 0 Hx of Vascular Disease No 0 Total 1 Treatment Treatment ordered: NONE Reason Anticoagulant not given: Not indicated/[id number] CHECO PABLO MD Aug 18, 2020 17:55
--- NOTE | 2020-08-18 18:23 | ECGEPIP ---
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
[2020-08-18 20:00] VITALS: BP 145/67
[2020-08-18 21:00] VITALS: BP 96/55
[2020-08-18] MEDS: ENOXAPARIN 40MG/0.4ML SYRINGE (J1650 PER 10MG) SC SCH (21:47)
[2020-08-18 22:00] VITALS: BP 98/57
[2020-08-18 23:00] VITALS: BP 98/54
[2020-08-19] VITALS (23 sets, daily range): BP systolic 97–134; BP diastolic 55–86
[2020-08-19] MEDS: NS 1,000 ML IV SCH ×3 (04:01→23:10)
[2020-08-19 04:37] LABS: HEMOGLOBIN 11.4 g/dl (12.0-15.5); MEAN CORPUSCULAR HEMOGLOBIN 29.5 pg (27.0-33.0); MEAN CORPUSCULAR HGB CONC 32.6 g/dl (32.0-36.5); MEAN CORPUSCULAR VOLUME 90.4 fl (80.0-96.0); PLATELET COUNT, AUTOMATED 250 10^3/uL (150-450); RED BLOOD COUNT 3.87 10^6/uL (4.00-5.40); WHITE BLOOD COUNT 9.7 10^3/uL (4.0-10.0)
[2020-08-19 05:05] LABS: ALBUMIN 2.9 GM/DL (3.2-5.2); ALT/SGPT 13 U/L (12-78); BILIRUBIN,DIRECT 0.1 MG/DL (0.0-0.2); BILIRUBIN,TOTAL 0.6 MG/DL (0.2-1.0); BLOOD UREA NITROGEN 13 MG/DL (7-18); CALCIUM LEVEL 7.6 MG/DL (8.5-10.1); CARBON DIOXIDE LEVEL 23 MEQ/L (21-32); CHLORIDE LEVEL 114 MEQ/L (98-107); CREATININE FOR GFR 0.77 MG/DL (0.55-1.30); GLOMERULAR FILTRATION RATE > 60.0 (>51); GLUCOSE, FASTING 90 MG/DL (70-100); POTASSIUM SERUM 3.4 MEQ/L (3.5-5.1); SODIUM LEVEL 145 MEQ/L (136-145); TOTAL PROTEIN 6.3 GM/DL (6.4-8.2)
[2020-08-19] MEDS ORDERED: PANTOPRAZOLE 40MG VIAL (C9113 PER 1) IV SCH (09:00)
--- NOTE | 2020-08-19 13:41 | IPNPDOC ---
Text Note Date of Service The patient was seen on 08/19/20. NOTE SUBJECTIVE: -No acute issues, still somnolent, asking for some food PHYSICAL EXAMINATION: VITAL SIGNS: HDS, afebrile, stable on room air. See below for details GENERAL APPEARANCE: NAD, somnolent, awake on voice HEENT: NCAT, EOMI, MMM CARDIOVASCULAR: RRR, no m/r/g LUNGS: CTAB ABDOMEN: Obese, soft, normoactive sounds, NTND EXTREMITIES: WWP, no LE edema NEUROLOGICAL: speech is clear, moving all extremities. somnolent but awake and conversing with me during examination PSYCHIATRIC: AOx3 LABORATORY DATA: Reviewed, stable IMAGING: reviewed MICROBIOLOGY: Please see below. ASSESSMENT: 55 yo W with depression who is being admitted after multidrug intentional overdose. . PLAN: Multidrug overdose: Reportedly took 65 pills altogether of various drugs including her klonopin, desvenlafaxine and vortioxetine. -Poison control was consulted, appreciate recs --> recommended observation for at least 12 hours, stable labs, starting to wake up more -AM CBC, LFTs and BMP -Hold all home meds -IVF -1:1 sitter Depression with suicide attempt: -will consult psych once clinically stable GERD: -Switch PPI to PO DVT ppx: lovenox Dispo: ICU for close monitoring for drug overdose. Once fully awake will consult psych, likely tomorrow. VS,Fishbone, I+O VS, Fishbone, I+O Laboratory Tests 08/18/20 15:58 08/19/20 04:32 Vital Signs Date Time Temp Pulse Resp B/P (MAP) Pulse Ox O2 Delivery O2 Flow Rate FiO2 08/19/20 12:00 98.4 81 18 110/65 (80) 97 Room Air 08/18/20 15:59 2.0 I&O- Last 24 Hours up to 6 AM 08/19/20 06:00 Intake Total 2065 ml Output Total 175 ml Balance 1890 ml CHECO PABLO MD Aug 19, 2020 13:41
[2020-08-19] MEDS: ACETAMINOPHEN TAB 650MG DOSE (2X325MG) PO PRN (16:06)
[2020-08-19] MEDS: ENOXAPARIN 40MG/0.4ML SYRINGE (J1650 PER 10MG) SC SCH (20:39)
[2020-08-20] VITALS (11 sets, daily range): BP systolic 107–152; BP diastolic 52–92
[2020-08-20 06:04] LABS: HEMOGLOBIN 10.7 g/dl (12.0-15.5); MEAN CORPUSCULAR HEMOGLOBIN 29.2 pg (27.0-33.0); MEAN CORPUSCULAR HGB CONC 32.4 g/dl (32.0-36.5); MEAN CORPUSCULAR VOLUME 89.9 fl (80.0-96.0); PLATELET COUNT, AUTOMATED 237 10^3/uL (150-450); RED BLOOD COUNT 3.67 10^6/uL (4.00-5.40); WHITE BLOOD COUNT 5.8 10^3/uL (4.0-10.0)
[2020-08-20 06:23] LABS: ALBUMIN 2.6 GM/DL (3.2-5.2); ALT/SGPT 14 U/L (12-78); BILIRUBIN,DIRECT 0.1 MG/DL (0.0-0.2); BILIRUBIN,TOTAL 0.2 MG/DL (0.2-1.0); BLOOD UREA NITROGEN 7 MG/DL (7-18); CALCIUM LEVEL 7.6 MG/DL (8.5-10.1); CARBON DIOXIDE LEVEL 24 MEQ/L (21-32); CHLORIDE LEVEL 118 MEQ/L (98-107); CREATININE FOR GFR 0.73 MG/DL (0.55-1.30); GLOMERULAR FILTRATION RATE > 60.0 (>51); GLUCOSE, FASTING 98 MG/DL (70-100); POTASSIUM SERUM 3.5 MEQ/L (3.5-5.1); SODIUM LEVEL 147 MEQ/L (136-145); TOTAL PROTEIN 6.1 GM/DL (6.4-8.2)
--- NOTE | 2020-08-20 08:58 | IPNPDOC ---
Text Note Date of Service The patient was seen on 08/20/20. NOTE SUBJECTIVE: -No acute issues, now awake, being transferred to med/surg pendig psych eval and IMHU transfer PHYSICAL EXAMINATION: VITAL SIGNS: HDS, afebrile, stable on room air. See below for details GENERAL APPEARANCE: NAD, awake, alert HEENT: NCAT, EOMI, MMM CARDIOVASCULAR: RRR, no m/r/g LUNGS: CTAB ABDOMEN: Obese, soft, normoactive sounds, NTND EXTREMITIES: WWP, no LE edema NEUROLOGICAL: speech is clear, moving all extremities. PSYCHIATRIC: AOx3 LABORATORY DATA: Reviewed, stable IMAGING: reviewed MICROBIOLOGY: Please see below. ASSESSMENT: 55 yo W with depression who is being admitted after multidrug intentional overdose. . PLAN: Multidrug overdose: Reportedly took 65 pills altogether of various drugs including her klonopin, desvenlafaxine and vortioxetine. -Poison control was consulted, appreciate recs --> recommended observation for at least 12 hours, stable labs, starting to wake up more -AM CBC, LFTs and BMP stable -Hold all psych home meds -dc IVF -1:1 sitter Depression with suicide attempt: - consulted psych now that she is clinically stable GERD: -continue daily PPI DVT ppx: lovenox while inpatient Dispo: medsurg pending consult psych, medically stable for discharge to [facility]. VS,Fishbone, I+O VS, Fishbone, I+O Laboratory Tests 08/20/20 05:49 Vital Signs Date Time Temp Pulse Resp B/P (MAP) Pulse Ox O2 Delivery O2 Flow Rate FiO2 08/20/20 06:00 84 108/52 (70) 95 Room Air 08/20/20 04:01 97.8 16 08/18/20 15:59 2.0 I&O- Last 24 Hours up to 6 AM 08/20/20 06:00 Intake Total 3900 ml Output Total 450 ml Balance 3450 ml CHECO PABLO MD Aug 20, 2020 08:58
[2020-08-20] MEDS ORDERED: PANTOPRAZOLE 40MG TAB (PROTONIX) PO SCH (09:00)
[2020-08-20] MEDS: ACETAMINOPHEN TAB 650MG DOSE (2X325MG) PO PRN (09:15)
--- NOTE | 2020-08-20 10:13 | MHCRPDOC ---
[facility] Consultation Consultation DATE OF CONSULTATION: 08/20/20 Patient seen by myself and the resident, patient will need inpatient care, orders to be placed under 9.39, please see full resident consult note in subs equent encounter. Vital Signs Vital Signs Date Time Temp Pulse Resp B/P (MAP) Pulse Ox O2 Delivery O2 Flow Rate FiO2 08/20/20 08:00 98.5 77 18 152/85 (107) 96 Room Air 08/18/20 15:59 2.0 Laboratory Data 24H Labs Laboratory Tests 2 08/20/20 05:49: Nucleated Red Blood Cells % (auto) 0.0, Anion Gap 5L, Glomerular Filtration Rate > 60.0, Calcium Level 7.6L, Total Bilirubin 0.2#, Direct Bilirubin 0.1, Aspartate Amino Transf (AST/SGOT) 15, Alanine Aminotransferase (ALT/SGPT) 14, Alkaline Phosphatase 72, Total Protein 6.1L, Albumin 2.6L, Albumin/Globulin Ratio 0.7L Home Medications Current Medications Current Medications Medications (Trade) Dose Ordered Sig/Yung Route PRN Reason Start Time Stop Time Status Last Admin Dose Admin Acetaminophen (Tylenol Tab) 650 mg Q6HP PRN PO PAIN / FEVER 08/19/20 16:00 08/20/20 09:15 Enoxaparin Sodium (Lovenox) 40 mg QHS SC 08/18/20 21:00 08/19/20 20:39 Home Med (Med Rec Complete!) ASDIRECTED XX 08/18/20 17:30 08/18/20 17:32 SC Pantoprazole Sodium (Protonix) 40 mg DAILY IV 08/19/20 09:00 08/19/20 13:42 DC 08/19/20 08:51 Pantoprazole Sodium (Protonix) 40 mg DAILY PO 08/20/20 09:00 08/20/20 09:15 Sodium Chloride 1,000 ml @ 100 mls/hr Q10H IV 08/18/20 18:00 08/20/20 08:42 DC 08/19/20 23:10 Scheduled Loratadine (Loratadine) 10 Mg Tablet, 10 MG PO DAILY, (Reported) Omeprazole (Omeprazole) 20 Mg Capsule.dr, 20 MG PO DAILY, (Reported) Allergies Coded Allergies: No Known Allergies (Unverified , 08/23/18) LUQIANA FREDERICK DO Aug 20, 2020 10:13
--- NOTE | 2020-08-20 13:42 | DS.PDOC ---
Discharge Summary General Date of Admission Aug 18, 2020 at 17:27 Date of Discharge 08/20/2020 Attending Physician: CHECO PABLO MD Discharge Summary PROCEDURES PERFORMED DURING STAY: None ADMITTING DIAGNOSES: 1. Intentional multidrug overdose 2. Severe depression 3. Suicide attempt 4. Toxic encephalopathy 2/2 multidrug overdose DISCHARGE DIAGNOSES: 1. Intentional multidrug overdose 2. Severe depression 3. Suicide attempt 4. Toxic encephalopathy 2/2 multidrug overdose 5. Obesity 6. GERD COMPLICATIONS/CHIEF COMPLAINT: Depressed,Intenional Drug Overdose,Suicide At tempt. HISTORY OF PRESENT ILLNESS: 55 yo W with a history of major depressive disorder, obesity, GERD and a remote history of pericarditis who was brought in by EMS after a suicide attempt during which she left 3 suicide notes and reportedly took 65 pills in total of various pills including her prescribed klonopin, desvenlafaxine and vortioxetine. Of note, day of admission was her birthday. HOSPITAL COURSE: In the ED she was somnolent but awake on voice but falling asleep during history taking. She was otherwise hemodynamically stable, afebrile and breathing comfortably on room air. Work up was notable for +benzo on tox scree, leukocytosis to 15.5, Hgb 12.4, platelets 278, Na 139, K 4, Cr 1.01, normal VBG without acid/base disturbances, CK 234, normal LFTs, negative respiratory panel and CXR wnl. Poison control was consulted and recommended at least 12 hour observation with repeat basic labs in the morning. She was admitted to the ICU for observation with plan to consult psych when she is clinically stable. Labs remained stable and she is now alert, awake and now being discharged to the mental health unit for evaluation and management of her severe depression. DISCHARGE MEDICATIONS: Please see below. ALLERGIES: Please see below. PHYSICAL EXAMINATION ON DISCHARGE: VITAL SIGNS: Please see below. VITAL SIGNS: HDS, afebrile, stable on room air. See below for details GENERAL APPEARANCE: NAD, awake, alert HEENT: NCAT, EOMI, MMM CARDIOVASCULAR: RRR, no m/r/g LUNGS: CTAB ABDOMEN: Obese, soft, normoactive sounds, NTND EXTREMITIES: WWP, no LE edema NEUROLOGICAL: speech is clear, moving all extremities. PSYCHIATRIC: AOx3 LABORATORY DATA: Please see below. IMAGING: CXR that was wnl at admission PROGNOSIS: Good with mental health optimization ACTIVITY: As tolerated DIET: Regular DISCHARGE PLAN: [facility] DISPOSITION: [facility] DISCHARGE INSTRUCTIONS: 1. To [facility] ITEMS TO FOLLOWUP ON ON OUTPATIENT: 1. Major depression DISCHARGE CONDITION: Stable TIME SPENT ON DISCHARGE: 44 minutes. Vital Signs/I&Os Vital Signs Date Time Temp Pulse Resp B/P (MAP) Pulse Ox O2 Delivery O2 Flow Rate FiO2 08/20/20 06:00 84 108/52 (70) 95 Room Air 08/20/20 04:01 97.8 16 08/18/20 15:59 2.0 I&O- Last 24 Hours up to 6 AM 08/20/20 06:00 Intake Total 3900 ml Output Total 450 ml Balance 3450 ml Laboratory Data Labs 24H Laboratory Tests 2 08/20/20 05:49: Nucleated Red Blood Cells % (auto) 0.0, Anion Gap 5L, Glomerular Filtration Rate > 60.0, Calcium Level 7.6L, Total Bilirubin 0.2#, Direct Bilirubin 0.1, Aspartate Amino Transf (AST/SGOT) 15, Alanine Aminotransferase (ALT/SGPT) 14, Alkaline Phosphatase 72, Total Protein 6.1L, Albumin 2.6L, Albumin/Globulin Ratio 0.7L CBC/BMP Laboratory Tests 08/20/20 05:49 Discharge Medications Scheduled Loratadine (Loratadine) 10 Mg Tablet, 10 MG PO DAILY, (Reported) Omeprazole (Omeprazole) 20 Mg Capsule.dr, 20 MG PO DAILY, (Reported) Allergies Coded Allergies: No Known Allergies (Unverified , 08/23/18) CHECO PABLO MD Aug 20, 2020 08:48
== END 2020-08-20 18:48 | DRG 812 ==
LOC: M ED 15:45 → EDBD 15:45 → M ED INP 17:27 → ENRESERV 19:04 → M PCU 19:52 → M MSPAV 08-20 09:58
PROVIDERS: ADMIT Internal Medicine; ATTEND Internal Medicine
DX: T42.4X2A Poisoning by benzodiazepines, intentional self-harm, initial encounter (principal); G92 Toxic encephalopathy; F32.9 Major depressive disorder, single episode, unspecified; K21.9 Gastro-esophageal reflux disease without esophagitis; E66.9 Obesity, unspecified; Z79.899 Other long term (current) drug therapy

== ENCOUNTER 2020-08-20 18:52 | Inpatient (IN) | payer MEDICAID, OTHER ==
[~2020-08-20 18:52] MED LIST changes: +BRIN1TAB3 PO; +DESV100T3 PO; +ESTR1TAB PO; +LORA-674 PO; +OMEP-218 PO; +PRIS50TA PO
[2020-08-20] MEDS ORDERED: MOM 30ML SUSPENSION UDC PO PRN (19:45)
[2020-08-20] MEDS ORDERED: MAALOX 30 ML SUSP *UDC PO PRN (19:45)
[2020-08-20 20:51] VITALS: BP 170/87
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
[2020-08-20] MEDS: traZODone 50 MG TAB PO PRN (23:14)
[2020-08-20] MEDS: ACETAMINOPHEN TAB 650MG DOSE (2X325MG) PO PRN (23:15)
[2020-08-21 06:27] VITALS: BP 119/69
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
[2020-08-21] MEDS: ACETAMINOPHEN TAB 650MG DOSE (2X325MG) PO PRN (16:19)
[2020-08-21 18:00] VITALS: BP 148/78
--- NOTE | 2020-08-21 18:37 | HPEPDOC ---
[facility] Medical History & Physical Date of Admission Aug 20, 2020 Date of Service: Aug 21, 2020 History and Physical CHIEF COMPLAINT: Suicidal attempt by overdose HISTORY OF PRESENT ILLNESS: Mrs. Alcantara is a 55-year-old female with major depressive disorder and obesity who is currently in the inpatient mental health unit for suicidal attempt by overdose. She was hospitalized from 08/18/2022 to 08/20/2024 suicide attempt from taking 65 various pills including Klonopin, desvenlafaxine, and vortioxetine. Today she was seen in the inpatient until health unit. She feels well and tells me that she has less stressors here. Denies any fever or chills, lightheadedness or dizziness, chest pain, dyspnea, abdominal pain, diarrhea, or dysuria. Otherwise, she tells me that she has eczema on her right pinky of which she brought her own steroid cream. PAST MEDICAL HISTORY: 1. Major depressive disorder 2. Obesity 3. GERD 4. Eczema 5. Remote history of pericarditis PAST SURGICAL HISTORY: 1. Carpal tunnel release 2. Hysterectomy SOCIAL HISTORY: Tobacco use: Denies ETOH: Does not drink at baseline Illicit drug use: Denies FAMILY HISTORY: Father: Unknown to patient Mother: Hypertension, CAD, diabetes mellitus, COPD ALLERGIES: Please see below. REVIEW OF SYSTEMS: CONSTITUTIONAL: Denies any fever or chills. Denies lightheadedness or dizziness. ENT: Denies sore throat. Denies dysphagia. RESPIRATORY: Denies shortness of breath. Denies cough. CARDIOVASCULAR: Denies chest pain. GASTROINTESTINAL: Denies abdominal pain. Denies diarrhea. GENITOURINARY: Denies dysuria. CUTANEOUS: Reports eczema of her right pinky MUSCULOSKELETAL: Denies muscle weakness. NEUROLOGICAL: Denies neuropathy. Denies paresthesias. HEMATOLOGICAL: Denies easy bruisability. HOME MEDICATIONS: Please see below. PHYSICAL EXAMINATION: VITAL SIGNS: Temperature 97.1, pulse 91, respiratory rate 20, blood pressure 119/69, pulse oximetry 96 % on room air. GENERAL: Comfortable, in no apparent distress. HEENT: Head normocephalic/atraumatic, EOMI, sclera clear. NECK: Supple, no JVD. RESPIRATORY: Lungs clear to auscultation bilaterally, no rales, wheeze or rhonchi. CARDIOVASCULAR: Regular rate and rhythm. ABDOMEN: Soft, nontender, no guarding or rebound tenderness. Normal bowel sounds. MUSCLE SKELETAL: Muscle strength 5/5 in all extremities. NEUROLOGICAL: CN 312 grossly intact, no focal deficits noted. PSYCHOLOGICAL: Normal mood and affect ASSESSMENT AND PLAN: 1. Suicidal attempt by overdose Being managed in the inpatient [facility] health unit 2. GERD Continue omeprazole 3. Eczema Patient is okay to use own steroid cream Thank you for consulting us. We will sign off at this time. If there is any further questions or concerns, please do not hesitate to reconsult us Vital Signs Vital Signs Date Time Temp Pulse Resp B/P (MAP) Pulse Ox O2 Delivery O2 Flow Rate FiO2 08/21/20 08:44 Room Air 08/21/20 06:27 97.1 91 20 119/69 (86) 96 Home Medications Scheduled Loratadine (Loratadine) 10 Mg Tablet, 10 MG PO DAILY Omeprazole (Omeprazole) 20 Mg Capsule.dr, 20 MG PO DAILY Allergies Coded Allergies: No Known Allergies (Unverified , 08/23/18) A-FIB/CHADSVASC A-FIB History Current/History of A-Fib/PAF?: No EUGENIA PALENCIA DO Aug 21, 2020 18:36
[2020-08-21] MEDS: TRIAMCINOLONE 0.5% TOP SCH (21:14)
[2020-08-21] MEDS: BACITRACIN OINTMENT 30GM TUBE TOP SCH (21:15)
[2020-08-21] MEDS: traZODone 50 MG TAB PO PRN (21:38)
[2020-08-22 06:01] VITALS: BP 155/68
[2020-08-22] MEDS: BACITRACIN OINTMENT 30GM TUBE TOP SCH (06:46)
[2020-08-22] MEDS: LORATADINE 10 MG TAB PO SCH (09:43)
[2020-08-22] MEDS: OMEPRAZOLE 20 MG CAP PO SCH (09:43)
[2020-08-22] MEDS: TRIAMCINOLONE 0.5% TOP SCH ×2 (09:44→21:22)
--- NOTE | 2020-08-22 11:34 | MHIPNPDOC ---
[facility] Progress Note Progress Note DATE OF SERVICE: 08/22/20 HISTORY: The patient was met with today, she reports that she wants to try no medication at time, and she feels she made some improvement on the unit without being started home meds formulary. She reports that she wants to try therapy primarily, she had requested discharge, however collateral information from both provider and her family relaying a significant difficulty with insight and a long history of depression that goes unabated for many months at a time, she will need further observation especially if she wanted to go without medications VITAL SIGNS: See below. NEW TEST RESULTS: None. CURRENT MEDICATIONS: See below. MENTAL STATUS EXAMINATION: General: [Well dressed with good hygiene] Speech: [Spontaneous and fluid] Thought processes: [Linear and logical] Thought content: [Future orientated] Abstract reasoning, and computation: [Intact] Description of associations: [Intact] Description of abnormal or psychotic thoughts:[Denies any suicidal or homicidal ideation. Denies any auditory or visual hallucinations. Does not appear to be responding to internal stimuli. Does not appear to be endorsing any bizarre or paranoid ideation.] Judgment: Improving Insight: Improving Orientation: [Alert and orientated 3] Recent and remote memory: [Intact] Attention span and concentration: [Intact] Fund of knowledge: [Adequate] Mood: "That's fine" Affect: [Euthymic with a full range] DIAGNOSES: 1. MDD, recurrent, severe ASSESSMENT: We'll need to observe patient over the long weekend, she can try off medications but I be concerned whether her depression recur, she did best on Augmentin regiment with Rexulti or another agent, however she at this time wants to try without medications, although I would caution about discharging her to promptly MANAGEMENT PLAN: Continue to observe. TIME SPENT: 15 minutes. Vital Signs Vital Signs Date Time Temp Pulse Resp B/P (MAP) Pulse Ox O2 Delivery O2 Flow Rate FiO2 08/22/20 11:10 Room Air 08/22/20 06:01 97.6 63 16 155/68 (97) 97 Current Medications Current Medications Medications (Trade) Dose Ordered Sig/Yung Route PRN Reason Start Time Stop Time Status Last Admin Dose Admin Acetaminophen (Tylenol Tab) 650 mg Q6HP PRN PO HEADACHE or DISCOMFORT 08/20/20 19:45 08/21/20 16:19 Al Hydrox/Mg Hydrox/Simethicone (Mylanta) 30 ml Q4HP PRN PO HEARTBURN/INDIGESTION 08/20/20 19:45 Bacitracin (Bacitracin Oint) Left wrist open sore DAILY TOP 08/21/20 20:00 08/22/20 06:46 Loratadine (Claritin) 10 mg DAILY PO 08/22/20 09:00 08/22/20 09:43 Magnesium Hydroxide (Milk Of Magnesia) 30 ml DAILYPRN PRN PO CONSTIPATION 08/20/20 19:45 Omeprazole (PriLOSEC) 20 mg DAILY PO 08/22/20 09:00 08/22/20 09:43 Patient Own Medication (Patient'S Own Med) Triamcinolone 0.5% cream BID to fitzgerald... BID TOP 08/21/20 21:00 08/22/20 09:44 Trazodone HCl (Desyrel) 50 mg QHSP PRN PO INSOMNIA 08/20/20 19:45 08/21/20 21:38 Allergies Coded Allergies: No Known Allergies (Unverified , 08/23/18) QIANA STOLL DO Aug 22, 2020 11:34
[2020-08-22 18:07] VITALS: BP 157/88
[2020-08-22] MEDS: ACETAMINOPHEN TAB 650MG DOSE (2X325MG) PO PRN (21:26)
[2020-08-23 05:50] VITALS: BP 146/76
[2020-08-23] MEDS: BACITRACIN OINTMENT 30GM TUBE TOP SCH (09:32)
[2020-08-23] MEDS: LORATADINE 10 MG TAB PO SCH (09:33)
[2020-08-23] MEDS: OMEPRAZOLE 20 MG CAP PO SCH (09:33)
[2020-08-23] MEDS: TRIAMCINOLONE 0.5% TOP SCH ×2 (09:33→21:24)
--- NOTE | 2020-08-23 10:57 | MHIPNPDOC ---
[facility] Progress Note Progress Note DATE OF SERVICE: 08/23/20 HISTORY: The patient was met with today, she reports some mild brain zaps since stopping her medication, she reports that she still wants to try off medicatio ns, reporting that she is tried ketamine and other medications and it has not been helpful. She reports she goes off them for some time feels better and then comes back to her psychiatrist with the cycle starts of new. She reports that she is feeling otherwise okay in terms of her mood and anxiety, she has been attending to groups and engaged. VITAL SIGNS: See below. NEW TEST RESULTS: None. CURRENT MEDICATIONS: See below. MENTAL STATUS EXAMINATION: General: [Well dressed with good hygiene] Speech: [Spontaneous and fluid] Thought processes: [Linear and logical] Thought content: [Future orientated] Abstract reasoning, and computation: [Intact] Description of associations: [Intact] Description of abnormal or psychotic thoughts:[Denies any suicidal or homicidal ideation. Denies any auditory or visual hallucinations. Does not appear to be responding to internal stimuli. Does not appear to be endorsing any bizarre or paranoid ideation.] Judgment: Improving Insight: Improving Orientation: [Alert and orientated 3] Recent and remote memory: [Intact] Attention span and concentration: [Intact] Fund of knowledge: [Adequate] Mood: "That's fine" Affect: [Euthymic with a full range] DIAGNOSES: 1. MDD, recurrent, severe ASSESSMENT: Continue to observe, will likely need to see whether the improvement continues, high risk in the way but ultimately ECT or even transcranial magnetic could be an option for her MANAGEMENT PLAN: Continue to observe. TIME SPENT: 15 minutes. Vital Signs Vital Signs Date Time Temp Pulse Resp B/P (MAP) Pulse Ox O2 Delivery O2 Flow Rate FiO2 08/23/20 05:50 97.7 70 18 146/76 (99) 95 Room Air Current Medications Current Medications Medications (Trade) Dose Ordered Sig/Yung Route PRN Reason Start Time Stop Time Status Last Admin Dose Admin Acetaminophen (Tylenol Tab) 650 mg Q6HP PRN PO HEADACHE or DISCOMFORT 08/20/20 19:45 08/22/20 21:26 Al Hydrox/Mg Hydrox/Simethicone (Mylanta) 30 ml Q4HP PRN PO HEARTBURN/INDIGESTION 08/20/20 19:45 Bacitracin (Bacitracin Oint) Left wrist open sore DAILY TOP 08/21/20 20:00 08/23/20 09:32 Loratadine (Claritin) 10 mg DAILY PO 08/22/20 09:00 08/23/20 09:33 Magnesium Hydroxide (Milk Of Magnesia) 30 ml DAILYPRN PRN PO CONSTIPATION 08/20/20 19:45 Omeprazole (PriLOSEC) 20 mg DAILY PO 08/22/20 09:00 08/23/20 09:33 Patient Own Medication (Patient'S Own Med) Triamcinolone 0.5% cream BID to fitzgerald... BID TOP 08/21/20 21:00 08/23/20 09:33 Trazodone HCl (Desyrel) 50 mg QHSP PRN PO INSOMNIA 08/20/20 19:45 08/21/20 21:38 Allergies Coded Allergies: No Known Allergies (Unverified , 08/23/18) QIANA STOLL DO Aug 23, 2020 10:57
[2020-08-23] MEDS: ACETAMINOPHEN TAB 650MG DOSE (2X325MG) PO PRN (15:22)
[2020-08-23 17:30] VITALS: BP 140/89
[2020-08-24] MEDS: ACETAMINOPHEN TAB 650MG DOSE (2X325MG) PO PRN (03:44)
[2020-08-24 06:38] VITALS: BP 145/81
[2020-08-24] MEDS: OMEPRAZOLE 20 MG CAP PO SCH (09:14)
[2020-08-24] MEDS: LORATADINE 10 MG TAB PO SCH (09:14)
[2020-08-24] MEDS: TRIAMCINOLONE 0.5% TOP SCH ×2 (09:14→21:01)
[2020-08-24] MEDS: BACITRACIN OINTMENT 30GM TUBE TOP SCH (09:14)
[2020-08-24] MEDS ORDERED: KETOROLAC TROMETHAMINE 10 MG TAB PO ONE (11:00)
--- NOTE | 2020-08-24 20:09 | MHIPNPDOC ---
[facility] Progress Note Progress Note DATE OF SERVICE: 08/24/20 HISTORY: The patient is a 55 year old female with h/o severe depression who recently overdosed on medications. She says she is still feeling depressed but denies current SI. She says she has tried so many medications, including Ketamine, that she wants to be off medications. She says she sees Dr. Colin for her medications. This account underwriter discussed with her about the possibility of Rexulti but she declined for now. She says Dr. Cruz proposed the same medication but she told him the same thing she is telling me today. VITAL SIGNS: See below. NEW TEST RESULTS: None. CURRENT MEDICATIONS: See below. MENTAL STATUS EXAMINATION: General: She presents wearing hospital clothes, a face mask, she has good hygiene and eye contact. Speech: Spontaneous and fluid Thought processes: Linear and coherent Thought content: Negative for SI/HI but is positive for depressive thoughts, she reports rumination Abstract reasoning, and computation: Intact Description of associations: Intact Description of abnormal or psychotic thoughts: Denies suicidal or homicidal ideation. Denies auditory or visual hallucinations. Does not appear to be responding to internal stimuli. Does not appear to be endorsing any bizarre or paranoid ideation but reports depressive thoughts, feeling hopeless. Judgment: Improving Insight: Improving Orientation: Alert and orientated 3 Recent and remote memory: Intact Attention span and concentration: Intact Fund of knowledge: average Mood: "I'm still depressed but I feel a little bit improved" Affect: Sad, depressed DIAGNOSES: 1. MDD, recurrent, severe ASSESSMENT: MANAGEMENT PLAN: She still wants to be off medications. She says she will think about other options but for the time being she thinks she can handle w/o meds. She is high risk, we will continue to monitor her and present different options ( Rexulti, Fetzima, Viibryd) besides the possibility of ECT. TIME SPENT: 15 minutes. Vital Signs Vital Signs Date Time Temp Pulse Resp B/P (MAP) Pulse Ox O2 Delivery O2 Flow Rate FiO2 08/24/20 06:38 97.3 93 18 145/81 (102) 96 Room Air Current Medications Current Medications Medications (Trade) Dose Ordered Sig/Yung Route PRN Reason Start Time Stop Time Status Last Admin Dose Admin Acetaminophen (Tylenol Tab) 650 mg Q6HP PRN PO HEADACHE or DISCOMFORT 08/20/20 19:45 08/24/20 03:44 Al Hydrox/Mg Hydrox/Simethicone (Mylanta) 30 ml Q4HP PRN PO HEARTBURN/INDIGESTION 08/20/20 19:45 Bacitracin (Bacitracin Oint) Left wrist open sore DAILY TOP 08/21/20 20:00 08/24/20 09:14 Loratadine (Claritin) 10 mg DAILY PO 08/22/20 09:00 08/24/20 09:14 Magnesium Hydroxide (Milk Of Magnesia) 30 ml DAILYPRN PRN PO CONSTIPATION 08/20/20 19:45 Omeprazole (PriLOSEC) 20 mg DAILY PO 08/22/20 09:00 08/24/20 09:14 Patient Own Medication (Patient'S Own Med) Triamcinolone 0.5% cream BID to fitzgerald... BID TOP 08/21/20 21:00 08/24/20 09:14 Trazodone HCl (Desyrel) 50 mg QHSP PRN PO INSOMNIA 08/20/20 19:45 08/21/20 21:38 Allergies Coded Allergies: No Known Allergies (Unverified , 08/23/18) DON GUAMAN MD Aug 24, 2020 20:09
[2020-08-25] MEDS: ACETAMINOPHEN TAB 650MG DOSE (2X325MG) PO PRN (05:43)
[2020-08-25 06:00] VITALS: BP 143/98
[2020-08-25] MEDS: TRIAMCINOLONE 0.5% TOP SCH ×2 (09:00→21:00)
[2020-08-25] MEDS: OMEPRAZOLE 20 MG CAP PO SCH (09:10)
[2020-08-25] MEDS: LORATADINE 10 MG TAB PO SCH (09:10)
[2020-08-25] MEDS: BACITRACIN OINTMENT 30GM TUBE TOP SCH (09:10)
[2020-08-25 18:00] VITALS: BP 142/80
[2020-08-26 05:39] VITALS: BP 141/78
[2020-08-26] MEDS: TRIAMCINOLONE 0.5% TOP SCH ×2 (09:00→21:00)
[2020-08-26] MEDS: BACITRACIN OINTMENT 30GM TUBE TOP SCH (09:00)
[2020-08-26] MEDS: OMEPRAZOLE 20 MG CAP PO SCH (09:30)
[2020-08-26] MEDS: LORATADINE 10 MG TAB PO SCH (09:30)
[2020-08-26] MEDS ORDERED: haloperidoL 5 MG TAB PO ONE (13:45)
[2020-08-26] MEDS ORDERED: LORazepam 2 MG TAB PO ONE (13:45)
[2020-08-26] MEDS ORDERED: diphenhydrAMINE 25MG CAP PO ONE (13:45)
[2020-08-26] MEDS ORDERED: chlorproMAZINE 25 MG TABLET PO ONE (15:30)
[2020-08-26] MEDS: ACETAMINOPHEN TAB 650MG DOSE (2X325MG) PO PRN (17:51)
[2020-08-27 06:17] VITALS: BP 151/99
[2020-08-27] MEDS: BACITRACIN OINTMENT 30GM TUBE TOP SCH (09:00)
[2020-08-27] MEDS: TRIAMCINOLONE 0.5% TOP SCH ×2 (09:00→20:57)
[2020-08-27] MEDS: OMEPRAZOLE 20 MG CAP PO SCH (09:05)
[2020-08-27] MEDS: LORATADINE 10 MG TAB PO SCH (09:06)
[2020-08-28 06:04] VITALS: BP 148/88
[2020-08-28] MEDS: TRIAMCINOLONE 0.5% TOP SCH ×2 (09:00→21:00)
[2020-08-28] MEDS: BACITRACIN OINTMENT 30GM TUBE TOP SCH (09:00)
[2020-08-28] MEDS: LORATADINE 10 MG TAB PO SCH (09:53)
[2020-08-28] MEDS: OMEPRAZOLE 20 MG CAP PO SCH (09:54)
[2020-08-28 15:44] VITALS: BP 147/92
[2020-08-29 06:41] VITALS: BP 132/78
[2020-08-29] MEDS: TRIAMCINOLONE 0.5% TOP SCH ×2 (09:00→21:00)
[2020-08-29] MEDS: BACITRACIN OINTMENT 30GM TUBE TOP SCH (09:00)
[2020-08-29] MEDS: OMEPRAZOLE 20 MG CAP PO SCH (09:35)
[2020-08-29] MEDS: LORATADINE 10 MG TAB PO SCH (09:35)
[2020-08-29 18:39] VITALS: BP 187/95
[2020-08-30 06:00] VITALS: BP 142/78
[2020-08-30] MEDS: TRIAMCINOLONE 0.5% TOP SCH ×2 (09:00→21:00)
[2020-08-30] MEDS: BACITRACIN OINTMENT 30GM TUBE TOP SCH (09:00)
[2020-08-30] MEDS: OMEPRAZOLE 20 MG CAP PO SCH (09:24)
[2020-08-30] MEDS: LORATADINE 10 MG TAB PO SCH (09:24)
[2020-08-30 18:16] VITALS: BP 140/90
[2020-08-31] MEDS: ACETAMINOPHEN TAB 650MG DOSE (2X325MG) PO PRN (06:50)
[2020-08-31 06:53] VITALS: BP 153/88
[2020-08-31] MEDS: OMEPRAZOLE 20 MG CAP PO SCH (08:57)
[2020-08-31] MEDS: LORATADINE 10 MG TAB PO SCH (08:57)
[2020-08-31] MEDS: BACITRACIN OINTMENT 30GM TUBE TOP SCH (08:58)
[2020-08-31] MEDS: TRIAMCINOLONE 0.5% TOP SCH (08:59)
[2020-08-31] MEDS ORDERED: CLAR10TA7 PO (14:15)
[2020-08-31] MEDS ORDERED: OMEP-218 PO (14:15)
[2020-08-31] MEDS ORDERED: TRAZ-252 PO (14:15)
[2020-08-31] MEDS ORDERED: MOM30SS2 PO (14:50)
== END 2020-08-31 16:30 | disposition home or self-care (01) | DRG 751 ==
LOC: M PSY 18:52
PROVIDERS: ADMIT Psychiatry & Neurology Addiction Medicine; ATTEND Pediatrics
DX: F33.3 Major depressive disorder, recurrent, severe with psychotic symptoms (principal); E66.9 Obesity, unspecified; K21.9 Gastro-esophageal reflux disease without esophagitis; L30.9 Dermatitis, unspecified; Z79.899 Other long term (current) drug therapy

== ENCOUNTER → 2020-09-07 | Outpatient (CLI) | payer MEDICAID, OTHER ==
[~2020-09-07] MED LIST changes: +CLAR10TA7 PO; +MOM30SS2 PO; +TRAZ-252 PO
[2020-09-07 16:00] LABS: BASO % 0.5 % (0.0-1.0); EOS # 0.2 10^3/uL (0.0-0.5); EOS % 2.3 % (0.0-3.0); HEMATOCRIT 39.7 % (36.0-47.0); HEMOGLOBIN 12.7 g/dl (12.0-15.5); LYMPH # 3.4 10^3/uL (1.5-5.0); MEAN CORPUSCULAR HEMOGLOBIN 28.5 pg (27.0-33.0); MEAN CORPUSCULAR VOLUME 89.2 fl (80.0-96.0); MONO # 0.6 10^3/uL (0.0-0.8); MONO % 6.8 % (0.0-5.0); NEUTROPHILS # 4.6 10^3/uL (1.5-8.5); NEUTROPHILS % 52.1 % (36.0-66.0); PLATELET COUNT, AUTOMATED 317 10^3/uL (150-450); RED BLOOD COUNT 4.45 10^6/uL (4.00-5.40); WHITE BLOOD COUNT 8.8 10^3/uL (4.0-10.0)
[2020-09-07 16:33] LABS: PERCENT SATURATION 33.3 % (13.2-45.0)
[2020-09-07 16:41] LABS: FOLATE 15.2 NG/ML; TOTAL 25(OH) VITAMIN D 21.4 NG/ML (30.0-100.0)
== END ==
LOC: M WUC 14:50
PROVIDERS: ATTEND Physician Assistant
DX: E55.9 Vitamin D deficiency, unspecified (principal); D64.9 Anemia, unspecified

== ENCOUNTER → 2021-03-06 | Outpatient (CLI) | payer OTHER ==
[~2021-03-06] MED LIST changes: +TERC0.4C10; -TERC0.4C2
[2021-03-06 12:51] LABS: ALBUMIN 3.6 GM/DL (3.2-5.2); ALT/SGPT 27 U/L (12-78); BILIRUBIN,DIRECT < 0.1 MG/DL (0.0-0.2); BILIRUBIN,TOTAL 0.4 MG/DL (0.2-1.0); BLOOD UREA NITROGEN 10 MG/DL (7-18); CALCIUM LEVEL 8.5 MG/DL (8.5-10.1); CARBON DIOXIDE LEVEL 24 MEQ/L (21-32); CHLORIDE LEVEL 109 MEQ/L (98-107); CHOLESTEROL LEVEL 253 MG/DL (<200); CHOLESTEROL RISK RATIO 6.023 (<5); GLOMERULAR FILTRATION RATE > 60.0 (>51); GLUCOSE, FASTING 89 MG/DL (70-100); HDL CHOLESTEROL 42 MG/DL (>40); LDL CHOLESTEROL 161 MG/DL (<100); NON-HDL-C 211 MG/DL; POTASSIUM SERUM 4.2 MEQ/L (3.5-5.1); SODIUM LEVEL 140 MEQ/L (136-145); TOTAL PROTEIN 7.3 GM/DL (6.4-8.2); TRIGLYCERIDES LEVEL 249 MG/DL (<150)
== END ==
LOC: M LAB 10:47
PROVIDERS: ATTEND Psychiatry & Neurology Psychiatry
DX: F33.2 Major depressive disorder, recurrent severe without psychotic features (principal)

== ENCOUNTER → 2022-08-01 | Outpatient (REF) | payer OTHER ==
[~2022-08-01] MED LIST changes: -CYMB60CA3 PO; +CYMB60CA4 PO; +NYST-13 TOP; -NYST10CR TOP; +OMEP-173 PO; -OMEP-218 PO; -PERP4TA PO; +PERP4TAB30 PO
[2022-08-01 13:01] LABS: HEMOGLOBIN 13.9 g/dl (12.0-15.5); MEAN CORPUSCULAR HEMOGLOBIN 28.4 pg (27.0-33.0); MEAN CORPUSCULAR HGB CONC 31.6 g/dl (32.0-36.5); PLATELET COUNT, AUTOMATED 355 10^3/uL (150-450); RED BLOOD COUNT 4.89 10^6/uL (4.00-5.40); WHITE BLOOD COUNT 8.3 10^3/uL (4.0-10.0)
[2022-08-01 13:41] LABS: ALBUMIN 3.8 G/DL (3.2-5.2); ALKALINE PHOSPHATASE 117 U/L (46-116); ALT/SGPT 18 U/L (7.0-40); AST/SGOT 20 U/L (<34); BILIRUBIN,TOTAL 0.5 MG/DL (0.3-1.2); BLOOD UREA NITROGEN 12 MG/DL (9-23); CALCIUM LEVEL 9.8 MG/DL (8.5-10.1); CARBON DIOXIDE LEVEL 28 MMOL/L (20-31); CHLORIDE LEVEL 103 MMOL/L (98-107); CHOLESTEROL LEVEL 198 MG/DL (<200); CHOLESTEROL RISK RATIO 3.91 (<5); FREE T4 1.04 NG/DL (0.89-1.76); GLOMERULAR FILTRATION RATE > 60.0 (>51); GLUCOSE, FASTING 86 MG/DL (60-100); HDL CHOLESTEROL 50.6 MG/DL (>40); LDL CHOLESTEROL 123.4 MG/DL (<100); NON-HDL-C 147 MG/DL; POTASSIUM SERUM 5.3 MMOL/L (3.5-5.1); SODIUM LEVEL 138 MMOL/L (136-145); THYROID STIMULATING HORMONE 3.011 uIU/ML (0.55-4.78); TOTAL PROTEIN 7.6 G/DL (5.7-8.2); TRIGLYCERIDES LEVEL 120 MG/DL (<150)
[2022-08-01 13:42] LABS: FOLATE 23.1 NG/ML (>5.4); TOTAL 25(OH) VITAMIN D 27.1 NG/ML (20.0-100.0)
[2022-08-01 13:43] LABS: VITAMIN B12 LEVEL 500 PG/ML (211-911)
[2022-08-01 14:16] LABS: HEMOGLOBIN A1c 5.4 % (4.0-6.0)
== END ==
LOC: M SFHCADAM 09:36
PROVIDERS: ATTEND Physician Assistant
DX: K21.9 Gastro-esophageal reflux disease without esophagitis (principal); F32.9 Major depressive disorder, single episode, unspecified; E55.9 Vitamin D deficiency, unspecified; E66.9 Obesity, unspecified; E78.00 Pure hypercholesterolemia, unspecified; Z13.1 Encounter for screening for diabetes mellitus

== ENCOUNTER → 2022-09-23 | Outpatient (CLI) | payer OTHER, MEDICAID | LOC: M WUC 08:13 | PROVIDERS: ATTEND Physician Assistant | DX: S43.402A Unspecified sprain of left shoulder joint, initial encounter (principal); X58.XXXA Exposure to other specified factors, initial encounter; Y92.9 Unspecified place or not applicable ==

== ENCOUNTER → 2022-11-13 | Outpatient (CLI) | payer OTHER, MEDICAID | LOC: M SOG 09:05 | PROVIDERS: ATTEND Orthopaedic Surgery | DX: M54.2 Cervicalgia (principal); M79.622 Pain in left upper arm; M47.812 Spondylosis without myelopathy or radiculopathy, cervical region; M85.88 Other specified disorders of bone density and structure, other site ==

== ENCOUNTER 2022-11-19 07:20 | Outpatient (RCR) | payer OTHER | END 2022-11-21 | LOC: M PT 07:20 | PROVIDERS: ATTEND Orthopaedic Surgery | DX: M25.512 Pain in left shoulder (principal) ==

== ENCOUNTER → 2022-11-21 | Outpatient (CLI) | payer OTHER | LOC: M PLARAD 14:09 | PROVIDERS: ATTEND Orthopaedic Surgery | DX: M25.512 Pain in left shoulder (principal); M67.814 Other specified disorders of tendon, left shoulder ==

== ENCOUNTER 2022-12-16 09:03 | Outpatient (RCR) | payer OTHER | END 2022-12-21 | LOC: M PT 09:03 | PROVIDERS: ATTEND Orthopaedic Surgery | DX: M25.512 Pain in left shoulder (principal); M67.814 Other specified disorders of tendon, left shoulder ==

== ENCOUNTER → 2023-11-12 | Outpatient (CLI) | payer OTHER ==
[~2023-11-12] MED LIST changes: -KLON1TAB PO; +KLON1TAB13 PO; +LORA-1041 PO; -LORA-674 PO; -MIRT-62 PO; +MIRT-88 PO
[2023-11-12 14:31] LABS: BASO # 0.1 10^3/uL (0.0-0.2); BASO % 1.3 % (0.0-1.0); EOS # 0.3 10^3/uL (0.0-0.5); EOS % 4.6 % (0.0-3.0); HEMATOCRIT 41.7 % (36.0-47.0); HEMOGLOBIN 13.3 g/dl (12.0-15.5); LYMPH # 2.3 10^3/uL (1.5-5.0); MEAN CORPUSCULAR HEMOGLOBIN 28.6 pg (27.0-33.0); MEAN CORPUSCULAR HGB CONC 31.9 g/dl (32.0-36.5); MEAN CORPUSCULAR VOLUME 89.7 fl (80.0-96.0); MONO # 0.4 10^3/uL (0.0-0.8); MONO % 6.7 % (2.0-8.0); NEUTROPHILS # 2.5 10^3/uL (1.5-8.5); NEUTROPHILS % 45.4 % (36.0-66.0); PLATELET COUNT, AUTOMATED 272 10^3/uL (150-450); RED BLOOD COUNT 4.65 10^6/uL (4.00-5.40); WHITE BLOOD COUNT 5.4 10^3/uL (4.0-10.0)
[2023-11-12 15:03] LABS: TOTAL 25(OH) VITAMIN D 17.3 NG/ML (20.0-100.0)
[2023-11-12 15:04] LABS: ALBUMIN 3.8 G/DL (3.2-5.2); ALKALINE PHOSPHATASE 88 U/L (46-116); ALT/SGPT 20 U/L (7.0-40); AST/SGOT 25 U/L (<34); BILIRUBIN,TOTAL 0.4 MG/DL (0.3-1.2); BLOOD UREA NITROGEN 13 MG/DL (9-23); CALCIUM LEVEL 8.8 MG/DL (8.3-10.6); CARBON DIOXIDE LEVEL 27 MMOL/L (20-31); CHLORIDE LEVEL 111 MMOL/L (98-107); CHOLESTEROL LEVEL 202 MG/DL (<200); CHOLESTEROL RISK RATIO 4.04 (<5); GLOMERULAR FILTRATION RATE > 60.0 (>45); GLUCOSE, FASTING 103 MG/DL (74-106); LDL CHOLESTEROL 133.8 MG/DL (<100); POTASSIUM SERUM 4.5 MMOL/L (3.5-5.1); SODIUM LEVEL 143 MMOL/L (136-145); THYROID STIMULATING HORMONE 2.446 uIU/ML (0.55-4.78); TRIGLYCERIDES LEVEL 91 MG/DL (<150)
[2023-11-12 15:05] LABS: FREE T4 0.98 NG/DL (0.89-1.76)
== END ==
LOC: M PLALAB 11:02
PROVIDERS: ATTEND Physician Assistant
DX: Z01.89 Encounter for other specified special examinations (principal); E78.00 Pure hypercholesterolemia, unspecified; E66.9 Obesity, unspecified; E55.9 Vitamin D deficiency, unspecified; Z68.32 Body mass index [BMI] 32.0-32.9, adult

== ENCOUNTER → 2025-03-16 | Outpatient (CLI) | payer OTHER ==
[~2025-03-16] MED LIST changes: -NYST-13 TOP; +NYST0.1C TOP
[2025-03-16 15:31] LABS: CHOLESTEROL LEVEL 198.0 MG/DL (<200); CHOLESTEROL RISK RATIO 2.8 (<5); LDL CHOLESTEROL 116.7 MG/DL (<100); MAGNESIUM LEVEL 2.2 MG/DL (1.8-2.4); NON-HDL-C 127.3 MG/DL; TRIGLYCERIDES LEVEL 53.0 MG/DL (<150)
[2025-03-16 15:33] LABS: FREE T4 0.99 NG/DL (0.89-1.76)
[2025-03-16 15:34] LABS: TOTAL 25(OH) VITAMIN D 29.7 NG/ML (20.0-100.0)
[2025-03-16 15:46] LABS: ESTIMATED AVERAGE GLUCOSE 108.0 MG/DL (60-110)
== END ==
LOC: M PLALAB 11:25
PROVIDERS: ATTEND Nurse Practitioner Family
DX: K21.9 Gastro-esophageal reflux disease without esophagitis (principal); Z13.220 Encounter for screening for lipoid disorders; Z13.1 Encounter for screening for diabetes mellitus; E55.9 Vitamin D deficiency, unspecified

== ENCOUNTER → 2025-04-20 | Outpatient (CLI) | payer OTHER ==
[~2025-04-20] MED LIST changes: -VITA500T17 PO; +VITA500T8 PO
== END ==
LOC: M WHC 10:42
PROVIDERS: ATTEND Nurse Practitioner Family
DX: Z12.31 Encounter for screening mammogram for malignant neoplasm of breast (principal)

== ENCOUNTER 2025-05-08 10:35 | Emergency (ER) | payer MEDICAID, OTHER ==
[~2025-05-08] VITALS: Ht 157.5 cm; Wt 79.6 kg
[2025-05-08] MEDS ORDERED: AMOX875T PO (11:06)
[2025-05-08] MEDS ORDERED: FLUV150C (11:06)
[2025-05-08] MEDS ORDERED: DUPI300P (11:06)
[2025-05-08] MEDS ORDERED: KLON0.5T8 (11:06)
[2025-05-08] MEDS ORDERED: MODA100T13 (11:06)
[2025-05-08] MEDS ORDERED: IBUP200T46 PO (11:06)
[2025-05-08] MEDS ORDERED: MECL25CH45 (11:06)
[2025-05-08] MEDS ORDERED: BENA25CA4 PO (11:07)
[2025-05-08] MEDS ORDERED: BROM118S38 PO (11:08)
[2025-05-08] MEDS ORDERED: [UNRECOGNIZED DRUG - CODE] PO (13:01)
[2025-05-08 13:11] VITALS: BP 150/96; TEMP 97.4; O2SAT 100
== END 2025-05-08 13:15 | disposition home or self-care (01) ==
LOC: M ED 10:35
DX: J06.9 Acute upper respiratory infection, unspecified (principal); B34.8 Other viral infections of unspecified site; M94.0 Chondrocostal junction syndrome [Tietze]; F41.9 Anxiety disorder, unspecified; G56.00 Carpal tunnel syndrome, unspecified upper limb; F12.10 Cannabis abuse, uncomplicated; Z79.1 Long term (current) use of non-steroidal anti-inflammatories (NSAID); Z79.2 Long term (current) use of antibiotics; Z79.899 Other long term (current) drug therapy

== ENCOUNTER → 2025-06-14 | Outpatient (CLI) | payer OTHER ==
[~2025-06-14] MED LIST changes: +AMOX875T PO; +BENA25CA4 PO; +BROM118S38 PO; +DUPI300P; +FLUV150C; +IBUP200T46 PO; +KLON0.5T8; +MECL25CH45; +MODA100T13; +[UNRECOGNIZED DRUG - CODE] PO
== END ==
LOC: M PLAIMG 11:54
PROVIDERS: ATTEND Nurse Practitioner Family
DX: M54.2 Cervicalgia (principal)

== ENCOUNTER 2025-07-09 14:05 | Emergency (ER) | payer MEDICAID, OTHER ==
[~2025-07-09] VITALS: Ht 157.5 cm; Wt 79.9 kg
[2025-07-09] MEDS ORDERED: CYCL-707 (14:43)
[2025-07-09] MEDS ORDERED: LEVOTAB10 (14:43)
[2025-07-09] MEDS ORDERED: MONT10TA97 PO (14:43)
[2025-07-09] MEDS ORDERED: DUPI200P SQ (14:43)
[2025-07-09] MEDS ORDERED: OMEP40CA4 PO (14:43)
[2025-07-09 14:44] LABS: BASO # 0.1 10^3/uL (0.0-0.2); BASO % 0.7 % (0.0-1.0); EOS # 0.3 10^3/uL (0.0-0.5); EOS % 4.2 % (0.0-3.0); LYMPH # 2.5 10^3/uL (1.5-5.0); LYMPH % 34.5 % (24.0-44.0); MONO # 0.6 10^3/uL (0.0-0.8); MONO % 8.1 % (2.0-8.0); NEUTROPHILS # 3.7 10^3/uL (1.5-8.5); NEUTROPHILS % 52.4 % (36.0-66.0); PLATELET COUNT, AUTOMATED 240 10^3/uL (150-450)
[2025-07-09] MEDS: ASPIRIN 81 MG CHEWABLE TABLET PO ONE (15:00)
[2025-07-09 15:01] VITALS: BP 132/76
[2025-07-09] MEDS: NITROGLYCERIN 0.4 MG SUBL TABLET SL PRN (15:01)
[2025-07-09 15:13] LABS: CK-MB VALUE MASS 1.8 NG/ML (<3.6)
[2025-07-09 15:14] LABS: CPK CREATINE PHOSPHOKINASE 196.0 U/L (34-145); MB/CK RELATIVE INDEX 0.91 (< OR =4)
[2025-07-09 15:15] LABS: ALT/SGPT 22.0 U/L (7.0-40); AST/SGOT 28.0 U/L (<34); CALCIUM LEVEL 8.9 MG/DL (8.3-10.6); CARBON DIOXIDE LEVEL 24.0 MMOL/L (20-31); CHLORIDE LEVEL 111.0 MMOL/L (98-107); CREATININE FOR GFR 1.02 MG/DL (0.55-1.30); GLOMERULAR FILTRATION RATE 62.6 (>45); POTASSIUM SERUM 4.3 MMOL/L (3.5-5.1); SODIUM LEVEL 144.0 MMOL/L (136-145)
[2025-07-09 15:17] LABS: FREE T4 0.87 NG/DL (0.89-1.76)
[2025-07-09] MEDS: diphenhydrAMINE 50 MG/ML VIAL IV STA (15:53)
[2025-07-09] MEDS ORDERED: ISOVUE-370 76% 100 ML VIAL As Ordered ONE (16:17)
[2025-07-09 16:20] LABS: CK-MB VALUE MASS < 1.0 NG/ML (<3.6)
[2025-07-09 16:22] LABS: CPK CREATINE PHOSPHOKINASE 99 U/L (34-145)
[2025-07-09 18:43] VITALS: BP 154/77; TEMP 96.9; O2SAT 91
== END 2025-07-09 18:30 | disposition home or self-care (01) ==
LOC: M ED 14:05
DX: R07.9 Chest pain, unspecified (principal); E78.5 Hyperlipidemia, unspecified; F17.200 Nicotine dependence, unspecified, uncomplicated; L30.9 Dermatitis, unspecified; F41.9 Anxiety disorder, unspecified; F32.A Depression, unspecified; Z91.041 Radiographic dye allergy status; Z79.1 Long term (current) use of non-steroidal anti-inflammatories (NSAID); Z79.899 Other long term (current) drug therapy
CPT/HCPCS: 71045; 71275; 80047; 80048; 80076; 82550; 82553; 84439; 84443; 84484; 85025; 93005; 93041; 94760; 96374; 96375; 99285; J1200; J2919; Q9967

== ENCOUNTER 2025-07-15 12:08 | Emergency (ER) | payer MEDICAID, OTHER ==
[~2025-07-15] VITALS: Ht 157.5 cm; Wt 80.9 kg
[~2025-07-15 12:08] MED LIST changes: +CYCL-707; +DUPI200P SQ; +LEVOTAB10; +MONT10TA97 PO; +OMEP40CA4 PO
[2025-07-15 12:53] LABS: BASO # 0.0 10^3/uL (0.0-0.2); BASO % 0.5 % (0.0-1.0); EOS # 0.3 10^3/uL (0.0-0.5); EOS % 5.1 % (0.0-3.0); LYMPH # 2.1 10^3/uL (1.5-5.0); LYMPH % 33.9 % (24.0-44.0); MONO # 0.6 10^3/uL (0.0-0.8); MONO % 9.3 % (2.0-8.0); NEUTROPHILS # 3.2 10^3/uL (1.5-8.5); NEUTROPHILS % 50.7 % (36.0-66.0); PLATELET COUNT, AUTOMATED 262 10^3/uL (150-450)
[2025-07-15 13:09] LABS: CK-MB VALUE MASS 1.4 NG/ML (<3.6)
[2025-07-15 13:11] LABS: ALT/SGPT 24 U/L (7.0-40); AST/SGOT 23 U/L (<34); CALCIUM LEVEL 8.4 MG/DL (8.3-10.6); CARBON DIOXIDE LEVEL 23 MMOL/L (20-31); CHLORIDE LEVEL 109 MMOL/L (98-107); CREATININE FOR GFR 0.99 MG/DL (0.55-1.30); GLOMERULAR FILTRATION RATE 64.9 (>45); POTASSIUM SERUM 4.2 MMOL/L (3.5-5.1); SODIUM LEVEL 142 MMOL/L (136-145)
[2025-07-15 13:16] LABS: CPK CREATINE PHOSPHOKINASE 118 U/L (34-145); MB/CK RELATIVE INDEX 1.18 (< OR =4)
[2025-07-15] MEDS: ACETAMINOPHEN 325 MG TAB PO ONE (13:23)
[2025-07-15] MEDS: diphenhydrAMINE 50 MG/ML VIAL IV STA (13:50)
[2025-07-15 14:14] LABS: CK-MB VALUE MASS 1.5 NG/ML (<3.6)
[2025-07-15 14:17] LABS: CPK CREATINE PHOSPHOKINASE 119 U/L (34-145); MB/CK RELATIVE INDEX 1.26 (< OR =4)
[2025-07-15] MEDS ORDERED: ISOVUE-370 76% 100 ML VIAL As Ordered ONE (14:29)
[2025-07-15] MEDS ORDERED: PERC5TAB12 PO (16:55)
[2025-07-15 17:20] VITALS: BP 136/86; TEMP 97.1; O2SAT 96
== END 2025-07-15 17:20 | disposition home or self-care (01) ==
LOC: M ED 12:08
DX: S22.32XA Fracture of one rib, left side, initial encounter for closed fracture (principal); X58.XXXA Exposure to other specified factors, initial encounter; J98.11 Atelectasis; H81.4 Vertigo of central origin; F32.A Depression, unspecified; F41.9 Anxiety disorder, unspecified; E78.5 Hyperlipidemia, unspecified; F17.200 Nicotine dependence, unspecified, uncomplicated; Z79.1 Long term (current) use of non-steroidal anti-inflammatories (NSAID); Z79.899 Other long term (current) drug therapy; Z91.041 Radiographic dye allergy status; Y92.9 Unspecified place or not applicable; Y93.89 Activity, other specified; Y99.9 Unspecified external cause status
CPT/HCPCS: 71275; 80048; 80076; 82550; 82553; 83690; 84484; 85025; 93005; 93041; 94760; 96374; 99285; J1200; J2919; Q9967

== ENCOUNTER 2025-08-14 17:36 | Emergency (ER) | payer MEDICAID, OTHER ==
[~2025-08-14] VITALS: Ht 157.5 cm; Wt 79.7 kg
[~2025-08-14 17:36] MED LIST changes: +PERC5TAB12 PO
[2025-08-14] MEDS: OXYCODONE/APAP 5MG/325MG(HOME DOSE PACK) PO ONE (20:22)
[2025-08-14 20:25] VITALS: BP 135/81; TEMP 97.7; O2SAT 98
== END 2025-08-14 20:35 | disposition home or self-care (01) ==
LOC: M ED 17:36
DX: M79.622 Pain in left upper arm (principal); W18.2XXA Fall in (into) shower or empty bathtub, initial encounter; F32.A Depression, unspecified; Z91.041 Radiographic dye allergy status; Y92.002 Bathroom of unspecified non-institutional (private) residence as the place of occurrence of the external cause; Y93.89 Activity, other specified; Y99.9 Unspecified external cause status; Z79.899 Other long term (current) drug therapy

== ENCOUNTER 2025-08-15 16:21 | Emergency (ER) | payer OTHER ==
[~2025-08-15] VITALS: Ht 157.5 cm; Wt 80.0 kg
[2025-08-15 21:29] VITALS: BP 118/76; TEMP 97.3; O2SAT 98
== END 2025-08-15 22:01 | disposition left against medical advice (07) ==
LOC: M ED 16:21
DX: Z53.21 Procedure and treatment not carried out due to patient leaving prior to being seen by health care provider (principal)

== ENCOUNTER 2025-08-23 09:21 | Day surgery (SDC) | payer OTHER ==
[~2025-08-23] VITALS: Ht 157.5 cm; Wt 77.5 kg
[2025-08-23] MEDS ORDERED: LIDOCAINE 2% 100 MG/5 ML SDV (FOR ANES.) As Ordered ONE (09:34)
[2025-08-23 10:13] VITALS: TEMP 98.4
[2025-08-23 10:24] VITALS: BP 104/60; O2SAT 96
== END 2025-08-23 10:40 | disposition home or self-care (01) ==
LOC: M OPP 09:21
PROVIDERS: ATTEND Surgery
DX: Z12.11 Encounter for screening for malignant neoplasm of colon (principal); K57.30 Diverticulosis of large intestine without perforation or abscess without bleeding; K64.0 First degree hemorrhoids; Z91.048 Other nonmedicinal substance allergy status; Z79.899 Other long term (current) drug therapy